=== PATIENT | female | born 1975 | race Caucasian/White ===

== ENCOUNTER 2019-11-07 21:02 | Emergency (ER) | payer BC, OTHER ==
[2019-11-07 22:29] LABS: BLOOD UREA NITROGEN,BUN 9 mg/dL (7.0-18.0); CHLORIDE,CL 104 mmol/L (98-107); GLUCOSE RANDOM 80 mg/dL (74-106); POTASSIUM,K 4.4 mmol/L (3.5-5.1); SODIUM,NA 138 mmol/L (136-145)
--- NOTE | 2019-11-07 23:01 | EDM.PDOC ---
ED HPI GENERAL MEDICAL PROBLEM - General Chief Complaint: Cardiovascular Problem Stated Complaint: fell and hitted head Time Seen by Provider: 11/07/19 21:17 - History of Present Illness INITIAL COMMENTS - FREE TEXT/NARRATIVE: HPI 44-year-old female with a history of recurrent syncopal episodes upon standing presents for evaluation after a syncopal event when she stood, felt lightheaded before having a sudden LOC, struck her head on a table as she fell and then near immediately returned consciousness. Endorses mild headache. Denies changes in vision or hearing. No blood thinners, no antiplatelet agents. * Denies chest pain, shortness of breath, double vision, neck pain, vertigo, headache, arm pain, arm paresthesias, arm numbness, or focal weakness or sensory at change now or the time of their event. * Denies recent chiropractic manipulation of their neck, neck trauma or strains. * Denies a history of seizures. No incontinence today, denies post-syncope confusion. M/S/F/SocHx notable for: please see HPI; remainder reviewed with patient and in chart. ROS: Negative constitutional, eye, cardiovascular, pulmonary, GI, , MSK, skin , neurologic, psychiatric, endocrine unless noted in the HPI. Exam HR 56, RR 16, BP 123/60, T 35.6C, SaO2 90% on room air. Gen: Pleasant, non-toxic appearing, resting comfortably. HEENT: NC, small hematoma on left posterior scalp, no surrounding bony tenderness palpation, otherwise atraumatic, PEERL, EOMI. C-Spine without tenderness palpation, neck with full range of motion. Resp: Clear to auscultation bilaterally with a normal work of breathing and no accessory muscle usage. Card: Regular rate and rhythm with no murmurs rubs or gallops, extremities are warm and well perfused, no JVD. Negative symptomatic orthostatics. GI: Nontender to palpation throughout all quadrants, nondistended : Deferred MSK: No visible deformities, strength and tone WNL. Skin: Normal color with no visible lesions. Neuro: alert and oriented 3, no facial asymmetry, no gaze preference, no slurring of speech. Pupils equal and reactive, EOMI, no facial asymmetry, no nystagmus, phonation intact, SCM 5/5 bilaterally. Cerebellar: bilateral upper extremities without dysmetria. Psych: Mood and affect appropriate. Labs / Imaging (pertinent): WBC 7.9, HB 13.4, sodium 138, potassium 4.4, hCG negative. EKG: SR at [address]-segment elevations or depressions, T-wave inversions or new LBBB. TN interval 146msec, QTc 440 msec, no delta waves, epsilon waves, coved or saddle ST-segment changes in leads V1-3, preseptal or inferior lead Q-waves, biphasic P-waves, or T-wave inversions; no LVH. MDM Previous chart, nursing note, and vitals reviewed. A: 44-year-old female with a history of recurrent syncopal episodes upon standing presents for evaluation after a syncopal event when she stood, felt lightheaded before having a sudden LOC, struck her head on a table as she fell and then near immediately returned consciousness. DDx and evaluation: * Anemia - Hemoglobin clinically within normal limits. * Cardiac - EKG labs and history without evidence of ACS, AV-block, WPW syndrome , Brugada syndrome, HCM, Long or Short QT-syndrome, or arrhythmogenic RV dysplasia. Heart sounds WNL on exam, no evidence of valvular abnormalities by history or auscultation. * Obstructive - Doubt PE, tamponade, or pulmonary hypertension based upon lack of shortness of breath, chest pain, or historical risk factors on history and the absence of hypoxemia, tachycardia, hypotension, or JVD on exam. * Vascular - As there are no identifiable risk factors on history (injury risk factors, vertiginous symptoms, diplopia, vision changes, TIA risk factors or prior similar events) further evaluationof a possible vertebrobasilar insufficiency. Furthermore, as the patient denies neck pain, recent neck trauma , and there is no evidence of a partial Loren's syndrome, a carotid or vertebral dissection is felt to be unlikely and imaging is not indicated. Similarly, the absence of focal arm symptoms and symmetric perfusion of the upper extremities effectively excludes emergent evaluation of any possible subclavian steal syndrome. Lastly, given the absence of chest pain aortic dissection further evaluation of any possible dissection is not warranted. * Elctrolyte - Electrolytes clinically within normal limits. * Hypotension (hypovolemia vs vasovagal vs autonomic instability) - SBP clinically within normal limits, no symptomatic changes with orthostatic maneuvers. * OBSTETRIC ANAESTHETIST (CVA/TIA/Mass) - given the absence of headache, absence of reported transient symptoms c/w a TIA and the absence of a focal neurological deficit, further evaluation, including imaging is not currently warranted. * Seizure - given the absence of reported seizure history and a presentation today atypical for a seizure strongly doubt that this was the cause of the patient's event. * AAA - patient without any abdominal, groin, back or flank pain on history or exam, as such no further evaluation of this possible etiology is currently indicated. * Head trauma - no clinical indications for C-Spine or head imaging. Disposition: discharge with PCP follow-up as needed. Impression: syncope. 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 [No Known Home Meds] 11/07/19 [History] Past Medical History - Past Health History Medical/Surgical History: Denies Medical/Surgical History - Past Surgical History GI Surgical History: Reports: Bariatric Procedure, Cholecystectomy Female Surgical History: Reports: Section, Hysterectomy Social & Family History - Family History Family Medical History: Noncontributory - Tobacco Use Smoking Status *Q: Never Smoker - Recreational Drug Use Recreational Drug Use: No ED ROS GENERAL - Review of Systems Review Of Systems: See Below ED EXAM, GENERAL - Physical Exam Exam: See Below Course - Vital Signs Last Recorded V/S: Last Vital Signs Temp 35.6 C 11/07/19 21:10 Pulse 56 L 11/07/19 21:10 Resp 16 11/07/19 21:10 BP 123/60 11/07/19 21:10 Pulse Ox 98 11/07/19 21:10 - Orders/Labs/Meds Orders: Active Orders 24 hr Category Date Time Status EKG 12 Lead [EKG Documentation Completion] [RC] STAT Care 11/07/19 21:17 Active Labs: Laboratory Tests 11/07/19 11/07/19 11/07/19 Range/Units 22:10 22:10 22:10 WBC 7.88 (4.0-11.0) K/uL RBC 4.61 (4.30-5.90) M/uL Hgb 13.4 (12.0-16.0) g/dL Hct 41.0 (36.0-46.0) % MCV 88.9 (80.0-98.0) fL MCH 29.1 (27.0-32.0) pg MCHC 32.7 (31.0-37.0) g/dL RDW Std Deviation 46.2 (28.0-62.0) fl RDW Coeff of Pankaj 14 (11.0-15.0) % Plt Count 280 (150-400) K/uL MPV 9.30 (7.40-12.00) fL Neut % (Auto) 73.9 (48.0-80.0) % Lymph % (Auto) 17.6 (16.0-40.0) % Lyon % (Auto) 7.2 (0.0-15.0) % Eos % (Auto) 1.0 (0.0-7.0) % Baso % (Auto) 0.3 (0.0-1.5) % Neut # (Auto) 5.8 H (1.4-5.7) K/uL Lymph # (Auto) 1.4 (0.6-2.4) K/uL Lyon # (Auto) 0.6 (0.0-0.8) K/uL Eos # (Auto) 0.1 (0.0-0.7) K/uL Baso # (Auto) 0.0 (0.0-0.1) K/uL Nucleated RBC % 0.0 /100WBC Nucleated RBCs # 0 K/uL Sodium 138 (136-145) mmol/L Potassium 4.4 (3.5-5.1) mmol/L Chloride 104 (98-107) mmol/L Carbon Dioxide 24.0 (21.0-32.0) mmol/L BUN 9 (7.0-18.0) mg/dL Creatinine 0.8 (0.6-1.0) mg/dL Est Cr Clr Drug Dosing 88.18 mL/min Estimated GFR (MDRD) > 60.0 ml/min Glucose 80 (74-106) mg/dL Calcium 8.4 L (8.5-10.1) mg/dL HCG, Qual NEGATIVE (NEG) Departure - Departure Time of Disposition: 23:00 Disposition: Home, Self-Care 01 Clinical Impression: Syncope Referrals: PCP,Unknown [Primary Care Provider] - Additional Instructions: You were in seen in the [facility] Emergency Department for evaluation of passing out or syncope. Please read and follow all of the instructions below. Please follow up with your primary care physician in 24-48 hours for repeat evaluation and further care. When calling for follow-up care, please make the office aware that this follow-up is from your recent emergency room visit. If for any reason you are refused follow-up, please contact the [facility] Emergency Department at and asked to speak to the emergency department charge nurse. Your care today was limited to identifying and treating emergent medical problems only. Many people have subtle differences in their test results that require follow up with their outpatient physician(s) to correctly determine if this represents a normal variation or concerning abnormality with respect to your specific health. The care given to you today was limited to identifying and treating emergent medical problems - you need to request a copy of all of your medical records from today's visit and follow up with your outpatient physician(s) to review both today's visit and your overall health. If you have any new symptoms or if you are at all concerned about your health please return immediately to the emergency department. Prescriptions: If you are uninsured or have financial difficulties with filling your prescription(s), you may consider using a free pharmacy discount service such as [employer] ([employer]) or [employer] ([employer]). These services allow you to search for a medication on your phone (or computer) and obtain a coupon that usually has a significant discount from the list coronel at a pharmacy. Your physician as well as [facility] does not have a financial relationship with either of these services. You may also wish to speak with your physician to determine if lower cost prescriptions are possible. Obtaining primary care: 1. [facility] provides pediatrics (children), family medicine (children, adults, and some obstetrical care), and internal medicine (adults). Further specialty care is also available. Same day appointments are available. They may be contacted at [phone] and are open Sunday through Sunday 8 AM to 5 PM. The [facility] are located at [facility], [address] [place], [place] [address]. 2. [facility] offers family medicine, internal medicine, womens health, and further specialty care. [facility] may be contacted at [phone]. [facility] is located at [address] [place], [address]. 3. If you have health insurance, please also contact your insurer for a list of accepting providers under your policy, you may contact these providers for further health care. Occupational health: Work related injuries may consider following up with [facility], . Occupational health services are located at [address] [place] [address] and are open Sunday through Sunday from 7: 30 am to 5:00 pm. Obstetrical and Gynecological Care: [facility], , Sunday through Sunday 8 AM to [address] [place] [address]. Eyecare: If you have an eye injury you should follow up with your remote control mirror installer or with [facility], at [phone] or [phone] , they are located at [address] [place] [address]. Dental Care Yan Bishop DDS. [address] [place], [place]. Ph. [phone] Jonathan Bishop DDS MS. [address] [facility] [address], [place], [place]. Ph. [phone] Ismael Diaz DDS. [address] [place]. Ph. [phone] Justin Clarke DDS. [address] [facility] [address] [place], [place]. Ph. [phone] Marck Elizabeth DDS PC. [address] [facility] [address] [place], [place]. Ph. Rubi Styles DDS. [address] [facility]. Ph. [phone] [facility]. [address] [place], [place]. Ph. [phone] [facility]. [address], [place], [place]. Ph. [phone] [facility] [address] [place] [phone]. Ph. [facility]. [address] [place] [address] [address] [place]. Ph. [facility]. [address], [place]. Ph. [phone] Syncope You have had a fainting (syncopal) spell. A fainting episode is a sudden and brief loss of consciousness. We do not believe your syncopal episode today was caused by a serious problem. Please followup with your primary care physician within 1-2 days for reevaluation, review of your current medications, and further workup or treatment if necessary. There are many causes for syncope and it can be difficult to fully diagnose each cause of syncope in the emergency department. Some of the most common causes of syncope are: Blood pressure pills and other medications that may lower blood pressure below normal. Sudden changes in posture (sudden standing). Standing too long. This can cause blood to pool in the legs. Seizure disorders. Low blood sugar (hypoglycemia) of diabetes. Bearing down to go to the bathroom. This can cause your blood pressure to rise suddenly. Your body compensates by making the blood pressure too low when you stop bearing down. Hardening of the arteries where the brain temporarily does not receive enough blood. Irregular heart beat and circulatory problems. Fear, emotional distress, injury, sight of blood, or illness. Seek immediate medical care if: You have another fainting episode or faint while lying or sitting down. DO NOT DRIVE YOURSELF. Call 911 if no other help is available. You have chest pain, are feeling sick to your stomach (nausea), vomiting or abdominal pain. You have an irregular heartbeat or one that is very fast (pulse over 120 beats per minute). You have a loss of feeling in some part of your body or lose movement in your arms or legs. You have difficulty with speech, confusion, severe weakness, or visual problems. You become sweaty and/or feel light headed. HomeDownRight Sepsis Event Note - Evaluation Sepsis Screening Result: No Definite Risk - Focused Exam Vital Signs: Vital Signs Temp Pulse Resp BP Pulse Ox 11/07/19 21:10 35.6 C 56 L 16 123/60 98 Date Exam was Performed: 11/07/19 Time Exam was Performed: 23:00 - My Orders Last 24 Hours: My Active Orders 11/07/19 21:17 EKG 12 Lead [EKG Documentation Completion] [RC] STAT - Assessment/Plan Last 24 Hours: My Active Orders 11/07/19 21:17 EKG 12 Lead [EKG Documentation Completion] [RC] STAT
== END 2019-11-07 23:15 | disposition home or self-care (01) ==
LOC: MW.ED 21:02
DX: R55 Syncope and collapse (principal); S00.03XA Contusion of scalp, initial encounter; Z98.84 Bariatric surgery status; Z90.49 Acquired absence of other specified parts of digestive tract; Z90.710 Acquired absence of both cervix and uterus; W01.198A Fall on same level from slipping, tripping and stumbling with subsequent striking against other object, initial encounter
CPT/HCPCS: 36415; 80048; 84703; 85025; 93005; 99283; 99284-25

== ENCOUNTER 2021-05-10 14:11 | Inpatient (IN) | payer OTHER ==
[2021-05-10] MEDS ORDERED: Ketorolac 30 MG/ML SDV IVPUSH ONE (15:53)
[2021-05-10] MEDS ORDERED: Sodium Chloride 0.9% 1,000 ML IV ONE ×2 (15:53→19:19)
[2021-05-10] MEDS ORDERED: Ondansetron 4 MG/2 ML SDV IVPUSH ONE (15:53)
[2021-05-10 17:15] LABS: CARBON DIOXIDE,CO2 26.3 mmol/L (21.0-32.0); POTASSIUM,K 3.2 mmol/L (3.5-5.1)
[2021-05-10] MEDS ORDERED: Iopamidol 755 MG/ML 500 ML Multipack Bottle IVPUSH STA (17:35)
--- NOTE | 2021-05-10 17:35 | CR ---
For Patients: As a result of the Century Cures Act, medical imaging exams and procedure reports are released immediately into your electronic medical record. You may view this report before your referring provider. If you have questions, please contact your health care provider. INDICATION: pain TECHNIQUE: Chest 1 view. COMPARISON: None. FINDINGS: Cardiovascular and mediastinum: Heart size and vasculature are normal in caliber and appearance. Mediastinum is within normal limits. Lungs and pleural space: Lungs are clear. No sign of infiltrate or mass. No sign of pleural effusion. No pneumothorax. Bones and soft tissues: No significant findings. IMPRESSION: Unremarkable chest. Dictated by: Abhishek Tobar MD @ 05/10/2021 17:33:57 (Electronically Signed)
[2021-05-10 18:02] LABS: CORONAVIRUS COVID-19 NAA NEGATIVE (NEGATIVE); INFLUENZA A NAA NEGATIVE (NEGATIVE); INFLUENZA B NAA NEGATIVE (NEGATIVE)
[2021-05-10] MEDS ORDERED: Piperacillin/Tazobactam 3.375 GM in Sodium Chloride 0.9% 50 ML IV ONE (18:47)
[2021-05-10] MEDS ORDERED: metroNIDAZOLE/Normal Saline 500 MG in Premix Bag 1 BAG IV ONE (18:51)
--- NOTE | 2021-05-10 18:53 | CT ---
INDICATION: abdominal pain with leukocytosis TECHNIQUE: CT abdomen and pelvis acquired with 100 ml Isovue 370IV contrast. COMPARISON: None FINDINGS: Lower chest: Unremarkable. Liver: Small calcifications in the right hepatic lobe. Spleen: Unremarkable. Pancreas: Unremarkable. Gallbladder and bile ducts: S/p cholecystectomy. Adrenal glands: Unremarkable. Kidneys: Unremarkable. GI tract: Status post gastric surgery. Mild, diffuse colonic wall thickening. No extraluminal air or abscess. No evidence for diverticulitis. The appendix measures up to 7 mm in diameter. Vascular structures: Unremarkable. Lymph nodes: Unremarkable. Pelvic Organs: Status post hysterectomy. Bones: Unremarkable for age. IMPRESSION: The appendix is thickened. There is no significant periappendiceal fat stranding but early acute appendicitis cannot be excluded. Mild, diffuse colonic wall thickening may reflect a nonspecific colitis. Status post gastric surgery, hysterectomy, and cholecystectomy. Findings discussed with Dr. Crockett at 6:50 p.m. on May 10, 2020. Please note that all CT scans at this facility use dose modulation, iterative reconstruction, and/or weight-based dosing when appropriate to reduce radiation dose to as low as reasonably achievable. Dictated by Jazmín Burns MD @ 05/10/2021 6:52:[address] Jazmín Burns @ May 10 2021 6:52PM
[2021-05-10] MEDS ORDERED: metroNIDAZOLE/Normal Saline 100 ML ONE (19:39)
--- NOTE | 2021-05-10 21:09 | EDM.PDOC ---
ED HPI GENERAL MEDICAL PROBLEM - General Chief Complaint: ENT Problem Stated Complaint: HIGH WBC Time Seen by Provider: 05/10/21 14:29 Source of Information: Reports: Patient History Limitations: Reports: No Limitations - History of Present Illness INITIAL COMMENTS - FREE TEXT/NARRATIVE: HISTORY AND PHYSICAL: History of present illness: Patient is a 45-year-old female who presents emergency room today after she was instructed to come to the emergency room due to her white blood cell count being elevated while at the clinic. Patient states that over the past week, she has n ot been feeling the best. Patient states initially she had a sore throat and was treated with Augmentin for presumed strep as she had white patches in the back of her throat. Patient states that her throat pain is much improved and is only residual at this time. Patient states 2 to 3 days ago, she began developing abdominal pain/cramping, fevers, vomiting, and diarrhea and states that she has been having a difficult time sleeping due to the symptoms. Patient states that she followed up again at the clinic and they had done lab work and instructed her to come to the emergency room after her white blood cell count was elevated at approximately 25. Patient states that she continues to have fevers, intermittent vomiting, and abdominal pain/cramping and states that she has also been having episodes of watery diarrhea multiple times throughout the day. Patient has a history of cholecystectomy, hysterectomy, and bariatric surgery denies any other health history. Patient denies any other associated symptoms. Patient denies chest pain, shortness of breath, or cough. Denies headache, neck stiff ness, change in vision, syncope, or near syncope. Denies constipation, or dysuria. Has not noted any blood in urine or stool. Patient has been eating and drinking appropriately. Review of systems: As per history of present illness and below otherwise all systems reviewed and negative. Past medical history: As per history of present illness and as reviewed below otherwise noncontributory. Surgical history: As per history of present illness and as reviewed below otherwise noncontri butory. Social history: See social history for further information Family history: As per history of present illness and as reviewed below otherwise noncontributory. Physical exam: General: Patient is alert, oriented, and in no acute distress. Patient laying comfortably on exam table. Vitals stable and reviewed by me. Patient is tired appearing. HEENT: Atraumatic, normocephalic, pupils equal and reactive bilaterally, negative for conjunctival pallor or scleral icterus, mucous membranes moist, TMs normal bilaterally, throat clear, neck supple, nontender, trachea midline. No drooling or trismus noted. No meningeal signs. No hot potato voice noted. Lungs: Clear to auscultation, breath sounds equal bilaterally, chest nontender. Heart: S1S2, regular rate and rhythm without overt murmur Abdomen: Soft, nondistended, mild generalized abdominal tenderness with negative rebound and negative Hudson. Negative for masses or hepatosplenomegaly. Negative for costovertebral tenderness. Pelvis: Stable nontender. Genitourinary: Deferred. Rectal: Deferred. Skin: Intact, warm, dry. No lesions or rashes noted. Extremities: Atraumatic, negative for cords or calf pain. Neurovascular unremarkable. Neuro: Awake, alert, oriented. Cranial nerves II through XII unremarkable. Cerebellum unremarkable. Motor and sensory unremarkable throughout. Exam nonfocal. Notes: Patient is a 45-year-old female who presents emergency room today secondary to abdominal pain and cramping, vomiting, fevers, and diarrhea over the past 3 days with a known elevated white blood cell count at the clinic. Upon arrival to the ED, patient is vitally stable and well-appearing on exam and is tired appearing. Will obtain lab work as well as abdominal pelvic CT scan as well as stool studies. Will also give a 20cc/kg bolus of NS. CBC shows a leukocytosis of 25.69 without a left shift and lactate within normal limits. Remainder of CBC unremarkable. CMP shows hypokalemia mild at 3.2. Creatinine mildly elevated at 1.1. Glucose elevation at 129. Corrected calcium for albumin 8.2 which is mildly decreased. Otherwise mild derangements of CBC unremarkable. Zosyn initiated. Patient unable to leave stool sample in ED. CXR shows no acute cardiopulmonary findings. Abd/Pelvic CT w cont shows the appendix is thickened. There is no significant periappendiceal fat stranding but early acute appendicitis cannot be excluded. Mild, diffuse colonic wall thickening may reflect nonspecific colitis. S/P gastric surgery, hysterectomy, and cholecystectomy. Will also add on Flagyl IV. I did call and speak to Dr. Heredia, general surgery, and thoroughly discussed patients case. He will follow patient for possible acute appendicitis but would like patient admitted to hospitalist due to colitis. I did call and speak to the hospitalist control officer, Dr. Newman and will admit to inpatient on telemetry. Voices understanding and is agreeable to plan of care. Denies any further questions or concerns at this time. Patient discharged to the hospital floor to Dr. Amaya care in stable condition. Diagnostics: CBC, CMP, UA, lipase, lactate, blood cultures x2, abdominal pelvic CT scan with contrast, ova and parasite, C. difficile, stool culture/[employer]: Saline, Zosyn, Flagyl, Zofran, Toradol Impression: Diffuse colitis Thickened appendix, possible early acute appendicitis Plan: Admit to inpatient to Dr. Newman, hospitalist, with consult to Dr. Heredia, general surgery, on telemetry Definitive disposition and diagnosis as appropriate pending reevaluation and review of above. Throat Pain Score (Numeric/FACES): 8 - Related Data Allergies Allergy/AdvReac Type Severity Reaction Status Date / Time No Known Allergies Allergy Verified 11/07/19 21:13 Home Meds: Home Meds . [No Known Home Meds] 11/07/19 [History] Past Medical History - Past Health History Medical/Surgical History: Denies Medical/Surgical History - Past Surgical History GI Surgical History: Reports: Bariatric Procedure, Cholecystectomy Female Surgical History: Reports: Section, Hysterectomy Social & Family History - Family History Family Medical History: No Pertinent Family History - Tobacco Use Tobacco Use Status *Q: Never Tobacco User Second Hand Smoke Exposure: No - Caffeine Use Caffeine Use: Reports: Coffee - Recreational Drug Use Recreational Drug Use: No ED ROS GENERAL - Review of Systems Review Of Systems: Comprehensive ROS is negative, except as noted in HPI. ED EXAM, GENERAL - Physical Exam Exam: See Below (see dictation) Course - Vital Signs Last Recorded V/S: Last Vital Signs Temp 96.7 F L 05/10/21 14:48 Pulse 78 05/10/21 16:54 Resp 18 05/10/21 16:54 BP 128/76 05/10/21 16:54 Pulse Ox 95 05/10/21 16:54 - Orders/Labs/Meds Orders: Active Orders 24 hr Category Date Time Status C DIFFICILE AG/TOXIN W/REFLEX [RM] Stat Lab 05/10/21 15:54 Ordered OVA & PARASITES BY IMMUNOASSAY [MREF] Stat Lab 05/10/21 15:54 Ordered STOOL CULTURE/SHIGA TOXIN [MREF] Stat Lab 05/10/21 15:53 Ordered STREP A BY PCR [MOLEC] Stat Lab 05/10/21 15:58 Ordered UA RFX YANETH AND CULT IF INDIC [URIN] Stat Lab 05/10/21 15:53 Ordered Labs: Laboratory Tests 05/10/21 05/10/21 05/10/21 Range/Units 16:45 16:45 17:15 WBC 25.69 H (4.0-11.0) K/uL RBC 4.32 (4.30-5.90) M/uL Hgb 12.9 (12.0-16.0) g/dL Hct 38.0 (36.0-46.0) % MCV 88.0 (80.0-98.0) fL MCH 29.9 (27.0-32.0) pg MCHC 33.9 (31.0-37.0) g/dL RDW Std Deviation 45.0 (28.0-62.0) fl RDW Coeff of Pankaj 14 (11.0-15.0) % Plt Count 293 (150-400) K/uL MPV 9.70 (7.40-12.00) fL Neut % (Auto) 88.8 H (48.0-80.0) % Lymph % (Auto) 4.0 L (16.0-40.0) % [place] % (Auto) 7.0 (0.0-15.0) % Eos % (Auto) 0.1 (0.0-7.0) % Baso % (Auto) 0.1 (0.0-1.5) % Neut # (Auto) 22.8 H (1.4-5.7) K/uL Lymph # (Auto) 1.0 (0.6-2.4) K/uL [place] # (Auto) 1.8 H (0.0-0.8) K/uL Eos # (Auto) 0.0 (0.0-0.7) K/uL Baso # (Auto) 0.0 (0.0-0.1) K/uL Nucleated RBC % 0.0 /100WBC Nucleated RBCs # 0 K/uL Sodium 139 (136-145) mmol/L Potassium 3.2 L (3.5-5.1) mmol/L Chloride 103 (98-107) mmol/L Carbon Dioxide 26.3 (21.0-32.0) mmol/L BUN 14 (7.0-18.0) mg/dL Creatinine 1.1 H (0.6-1.0) mg/dL Est Cr Clr Drug Dosing 63.47 mL/min Estimated GFR (MDRD) 54.0 ml/min Glucose 129 H (74-106) mg/dL Lactic Acid (0.4-2.0) mmol/L Calcium 7.8 L (8.5-10.1) mg/dL Total Bilirubin 0.6 (0.2-1.0) mg/dL AST 9 L (15-37) IU/L ALT 17 (14-63) IU/L Alkaline Phosphatase 101 (46-116) U/L Total Protein 6.7 (6.4-8.2) g/dL Albumin 2.9 L (3.4-5.0) g/dL Globulin 3.8 (2.6-4.0) g/dL Albumin/Globulin Ratio 0.8 L (0.9-1.6) Lipase 29 L (73-393) U/L Influenza Type A RNA NEGATIVE (NEGATIVE) Influenza Type B RNA NEGATIVE (NEGATIVE) SARS-CoV-2 RNA (DAVID) NEGATIVE (NEGATIVE) 05/10/21 Range/Units 18:10 WBC (4.0-11.0) K/uL RBC (4.30-5.90) M/uL Hgb (12.0-16.0) g/dL Hct (36.0-46.0) % MCV (80.0-98.0) fL MCH (27.0-32.0) pg MCHC (31.0-37.0) g/dL RDW Std Deviation (28.0-62.0) fl RDW Coeff of Pankaj (11.0-15.0) % Plt Count (150-400) K/uL MPV (7.40-12.00) fL Neut % (Auto) (48.0-80.0) % Lymph % (Auto) (16.0-40.0) % [place] % (Auto) (0.0-15.0) % Eos % (Auto) (0.0-7.0) % Baso % (Auto) (0.0-1.5) % Neut # (Auto) (1.4-5.7) K/uL Lymph # (Auto) (0.6-2.4) K/uL [place] # (Auto) (0.0-0.8) K/uL Eos # (Auto) (0.0-0.7) K/uL Baso # (Auto) (0.0-0.1) K/uL Nucleated RBC % /100WBC Nucleated RBCs # K/uL Sodium (136-145) mmol/L Potassium (3.5-5.1) mmol/L Chloride (98-107) mmol/L Carbon Dioxide (21.0-32.0) mmol/L BUN (7.0-18.0) mg/dL Creatinine (0.6-1.0) mg/dL Est Cr Clr Drug Dosing mL/min Estimated GFR (MDRD) ml/min Glucose (74-106) mg/dL Lactic Acid 1.0 (0.4-2.0) mmol/L Calcium (8.5-10.1) mg/dL Total Bilirubin (0.2-1.0) mg/dL AST (15-37) IU/L ALT (14-63) IU/L Alkaline Phosphatase (46-116) U/L Total Protein (6.4-8.2) g/dL Albumin (3.4-5.0) g/dL Globulin (2.6-4.0) g/dL Albumin/Globulin Ratio (0.9-1.6) Lipase (73-393) U/L Influenza Type A RNA (NEGATIVE) Influenza Type B RNA (NEGATIVE) SARS-CoV-2 RNA (DAVID) (NEGATIVE) Meds: Medications Discontinued Medications Generic Name Dose Route Start Last Admin Trade Name Freq PRN Reason Stop Dose Admin Sodium Chloride 1,000 mls @ 999 mls/hr 05/10/21 15:53 05/10/21 16:51 Normal Saline IV 05/10/21 16:53 999 mls/hr BOLUS ONE Administration Piperacillin Sod/Tazobactam 50 mls @ 100 mls/hr 05/10/21 18:47 05/10/21 19:54 Sod 3.375 gm/ Sodium Chloride IV 05/10/21 19:16 100 mls/hr ONETIME ONE Administration Metronidazole 500 mg/ Premix 100 mls @ 100 mls/hr 05/10/21 18:51 05/10/21 19:56 IV 05/10/21 19:50 100 mls/hr ONETIME ONE Administration Sodium Chloride 1,000 mls @ 800 mls/hr 05/10/21 19:19 05/10/21 19:50 Normal Saline IV 05/10/21 20:33 800 mls/hr STAT ONE Administration Metronidazole Confirm 05/10/21 19:39 05/10/21 19:56 Flagyl In Ns 500 Mg/100 Ml Administered 05/10/21 19:40 Not Given Dose 100 mls @ as directed .ROUTE .STK-MED ONE Iopamidol 100 ml 05/10/21 17:35 05/10/21 17:36 Iopamidol 755 Mg/Ml 500 Ml Multipack Bottle IVPUSH 05/10/21 17:36 100 ml ONETIME STA Administration Ketorolac Tromethamine 30 mg 05/10/21 15:53 05/10/21 16:52 Ketorolac 30 Mg/Ml Sdv IVPUSH 05/10/21 15:54 30 mg ONETIME ONE Administration Ondansetron HCl 4 mg 05/10/21 15:53 05/10/21 16:52 Ondansetron 4 Mg/2 Ml Sdv IVPUSH 05/10/21 15:54 4 mg ONETIME ONE Administration Departure - Departure Time of Disposition: 21:24 Disposition: Admitted As Inpatient 67 Clinical Impression: Colitis Appendicitis Qualifiers: Appendicitis type: unspecified Qualified Code(s): K37 - Unspecified appendicitis - Discharge Information Sepsis Event Note (ED) - Evaluation Sepsis Screening Result: Possible Sepsis Risk - Focused Exam Vital Signs: Vital Signs Temp Pulse Resp BP Pulse Ox 05/10/21 16:54 78 18 128/76 95 05/10/21 14:48 96.7 F L 91 20 127/75 100 - My Orders Last 24 Hours: My Active Orders 05/10/21 15:53 STOOL CULTURE/SHIGA TOXIN [MREF] Stat UA RFX YANETH AND CULT IF INDIC [URIN] Stat 05/10/21 15:54 C DIFFICILE AG/TOXIN W/REFLEX [RM] Stat OVA & PARASITES BY IMMUNOASSAY [MREF] Stat 05/10/21 15:58 STREP A BY PCR [MOLEC] Stat - Assessment/Plan Last 24 Hours: My Active Orders 05/10/21 15:53 STOOL CULTURE/SHIGA TOXIN [MREF] Stat UA RFX YANETH AND CULT IF INDIC [URIN] Stat 05/10/21 15:54 C DIFFICILE AG/TOXIN W/REFLEX [RM] Stat OVA & PARASITES BY IMMUNOASSAY [MREF] Stat 05/10/21 15:58 STREP A BY PCR [MOLEC] Stat
[2021-05-10] MEDS ORDERED: Ondansetron 4 MG/2 ML SDV IVPUSH PRN (23:09)
[2021-05-10] MEDS ORDERED: Albuterol/Ipratropium 3.0-0.5 MG/3 ML Neb Soln NEB PRN (23:09)
[2021-05-10] MEDS ORDERED: Potassium Chloride Riders 40 MEQ in Premix Bag 1 BAG IV ONE (23:14)
[2021-05-10] MEDS ORDERED: Enoxaparin 40 MG/0.4 ML Syringe SUBCUT ONE (23:15)
[2021-05-10] MEDS ORDERED: Morphine 2 MG/ML SYRINGE IVPUSH PRN (23:15)
--- NOTE | 2021-05-10 23:18 | PCM.HP.2 ---
H&P History of Present Illness - General Date of Service: 05/10/21 Admit Problem/Dx: Admission Diagnosis/Problem Admission Diagnosis/Problem Colitis - History of Present Illness Initial Comments - Free Text/Narative: Patient is a 45-year-old female with past medical history of bariatric surgery, cholecystectomy, hysterectomy who comes in secondary to worsening nausea, vomiting, generalized abdominal pain and diarrhea for the past 2 to 3 days. Patient states that she suffered from severe sore throat earlier starting last week on Sunday which progressively got worse. She had white plaques in the back of her throat. She went to see her primary care doctor who started her for strep throat infection on Augmentin. Patient states that Augmentin was pretty harsh on her stomach but she finished 7 doses out of 10. Following that patient started having nausea, vomiting abdominal pain and diarrhea which got worse in last few days. Patient went back to her primary care doctor where lab work was done which showed very elevated WBC count. Patient was instructed to go to the ER. In the ER CT scan of the abdomen was done which showed generalized colitis and possibly inflamed appendix. Surgeon on-call initially had recommended transfer to higher level of care given possible appendicitis and colitis, the surgeons at [facility] did not recommend transfer at this point, they recommended treating patient for colitis as patient had no classic signs of appendicitis and closely watching for any worsening signs of appendicitis. Patient was admitted to the hospital for further management with surgery on consult. Throat Pain Score (Numeric/FACES): 8 - Related Data Allergies/Adverse Reactions: Allergies Allergy/AdvReac Type Severity Reaction Status Date / Time No Known Allergies Allergy Verified 11/07/19 21:13 Home Medications: Home Meds . [No Known Home Meds] 11/07/19 [History] Past Medical History - Past Health History Medical/Surgical History: Denies Medical/Surgical History - Past Surgical History GI Surgical History: Reports: Bariatric Procedure, Cholecystectomy Female Surgical History: Reports: Section, Hysterectomy Social & Family History - Family History Family Medical History: No Pertinent Family History - Tobacco Use Tobacco Use Status *Q: Never Tobacco User Second Hand Smoke Exposure: No - Caffeine Use Caffeine Use: Reports: Coffee - Recreational Drug Use Recreational Drug Use: No H&P Review of Systems - Review of Systems: Review Of Systems: See Below General: Reports: Fever, Chills, Malaise, Weakness, Fatigue Pulmonary: Denies: Shortness of Breath, Wheezing Cardiovascular: Denies: Chest Pain, Palpitations Gastrointestinal: Reports: Abdominal Pain, Anorexia, Diarrhea, Decreased Appetite, Nausea. Denies: Black Stool, Bloody Stool, Constipation, Difficulty Swallowing, Flatus, Hematemesis, Hematochezia Genitourinary: Denies: Dysuria, Frequency, Burning Musculoskeletal: Denies: Neck Pain, Shoulder Pain, Arm Pain Skin: Denies: Cyanosis, Jaundice, Mottled Psychiatric: Denies: Confusion, Depression Neurological: Denies: Confusion, Dizziness, Headache Hematologic/Lymphatic: Denies: Anemia, Easy Bleeding, Easy Bruising Immunologic: Denies: Anaphylaxis, Food Allergy Exam - Exam Exam: See Below - Vital Signs Vital Signs: Last Vital Signs Temp 35.9 C L 05/10/21 14:48 Pulse 78 05/10/21 16:54 Resp 18 05/10/21 16:54 BP 128/76 05/10/21 16:54 Pulse Ox 95 05/10/21 16:54 Weight: 88.451 kg - Exam General: Alert, Oriented, Cooperative, Mild Distress Neck: Supple Lungs: Clear to Auscultation Cardiovascular: Regular Rate, Regular Rhythm GI/Abdominal Exam: Normal Bowel Sounds, Soft, Tender (Generalized abdominal pain mostly in epigastric region, no tenderness in the right lower quadrant) Extremities: Normal Inspection, Normal Range of Motion - Patient Data Lab Results Last 24 hrs: Laboratory Results - last 24 hr 05/10/21 05/10/21 05/10/21 Range/Units 16:45 16:45 17:15 WBC 25.69 H (4.0-11.0) K/uL RBC 4.32 (4.30-5.90) M/uL Hgb 12.9 (12.0-16.0) g/dL Hct 38.0 (36.0-46.0) % MCV 88.0 (80.0-98.0) fL MCH 29.9 (27.0-32.0) pg MCHC 33.9 (31.0-37.0) g/dL RDW Std Deviation 45.0 (28.0-62.0) fl RDW Coeff of Pankaj 14 (11.0-15.0) % Plt Count 293 (150-400) K/uL MPV 9.70 (7.40-12.00) fL Neut % (Auto) 88.8 H (48.0-80.0) % Lymph % (Auto) 4.0 L (16.0-40.0) % [place] % (Auto) 7.0 (0.0-15.0) % Eos % (Auto) 0.1 (0.0-7.0) % Baso % (Auto) 0.1 (0.0-1.5) % Neut # (Auto) 22.8 H (1.4-5.7) K/uL Lymph # (Auto) 1.0 (0.6-2.4) K/uL [place] # (Auto) 1.8 H (0.0-0.8) K/uL Eos # (Auto) 0.0 (0.0-0.7) K/uL Baso # (Auto) 0.0 (0.0-0.1) K/uL Nucleated RBC % 0.0 /100WBC Nucleated RBCs # 0 K/uL Sodium 139 (136-145) mmol/L Potassium 3.2 L (3.5-5.1) mmol/L Chloride 103 (98-107) mmol/L Carbon Dioxide 26.3 (21.0-32.0) mmol/L BUN 14 (7.0-18.0) mg/dL Creatinine 1.1 H (0.6-1.0) mg/dL Est Cr Clr Drug Dosing 63.47 mL/min Estimated GFR (MDRD) 54.0 ml/min Glucose 129 H (74-106) mg/dL Lactic Acid (0.4-2.0) mmol/L Calcium 7.8 L (8.5-10.1) mg/dL Total Bilirubin 0.6 (0.2-1.0) mg/dL AST 9 L (15-37) IU/L ALT 17 (14-63) IU/L Alkaline Phosphatase 101 (46-116) U/L Total Protein 6.7 (6.4-8.2) g/dL Albumin 2.9 L (3.4-5.0) g/dL Globulin 3.8 (2.6-4.0) g/dL Albumin/Globulin Ratio 0.8 L (0.9-1.6) Lipase 29 L (73-393) U/L Influenza Type A RNA NEGATIVE (NEGATIVE) Influenza Type B RNA NEGATIVE (NEGATIVE) SARS-CoV-2 RNA (DAVID) NEGATIVE (NEGATIVE) Group A Strep (PCR) (NOT DETECT) 05/10/21 05/10/21 Range/Units 18:10 21:18 WBC (4.0-11.0) K/uL RBC (4.30-5.90) M/uL Hgb (12.0-16.0) g/dL Hct (36.0-46.0) % MCV (80.0-98.0) fL MCH (27.0-32.0) pg MCHC (31.0-37.0) g/dL RDW Std Deviation (28.0-62.0) fl RDW Coeff of Pankaj (11.0-15.0) % Plt Count (150-400) K/uL MPV (7.40-12.00) fL Neut % (Auto) (48.0-80.0) % Lymph % (Auto) (16.0-40.0) % [place] % (Auto) (0.0-15.0) % Eos % (Auto) (0.0-7.0) % Baso % (Auto) (0.0-1.5) % Neut # (Auto) (1.4-5.7) K/uL Lymph # (Auto) (0.6-2.4) K/uL [place] # (Auto) (0.0-0.8) K/uL Eos # (Auto) (0.0-0.7) K/uL Baso # (Auto) (0.0-0.1) K/uL Nucleated RBC % /100WBC Nucleated RBCs # K/uL Sodium (136-145) mmol/L Potassium (3.5-5.1) mmol/L Chloride (98-107) mmol/L Carbon Dioxide (21.0-32.0) mmol/L BUN (7.0-18.0) mg/dL Creatinine (0.6-1.0) mg/dL Est Cr Clr Drug Dosing mL/min Estimated GFR (MDRD) ml/min Glucose (74-106) mg/dL Lactic Acid 1.0 (0.4-2.0) mmol/L Calcium (8.5-10.1) mg/dL Total Bilirubin (0.2-1.0) mg/dL AST (15-37) IU/L ALT (14-63) IU/L Alkaline Phosphatase (46-116) U/L Total Protein (6.4-8.2) g/dL Albumin (3.4-5.0) g/dL Globulin (2.6-4.0) g/dL Albumin/Globulin Ratio (0.9-1.6) Lipase (73-393) U/L Influenza Type A RNA (NEGATIVE) Influenza Type B RNA (NEGATIVE) SARS-CoV-2 RNA (DAVID) (NEGATIVE) Group A Strep (PCR) NOT DETECTED (NOT DETECT) Result Diagrams: 05/10/21 16:45 05/10/21 16:45 Sepsis Event Note - Evaluation Sepsis Screening Result: Possible Sepsis Risk - Focused Exam Vital Signs: Vital Signs Temp Pulse Resp BP Pulse Ox 05/10/21 16:54 78 18 128/76 95 05/10/21 14:48 35.9 C L 91 20 127/75 100 - Problem List (1) H/O gastric bypass SNOMED Code(s): 077306993 ICD Code: Z98.84 - BARIATRIC SURGERY STATUS Status: Acute Current Visit: Yes (2) Hx of cholecystectomy SNOMED Code(s): 240991430, 361023877 ICD Code: Z90.49 - ACQUIRED ABSENCE OF OTHER SPECIFIED PARTS OF DIGESTIVE TRACT Status: Acute Current Visit: Yes (3) Colitis SNOMED Code(s): 53527522 ICD Code: K52.9 - NONINFECTIVE GASTROENTERITIS AND COLITIS, UNSPECIFIED Status: Acute Current Visit: Yes (4) Hypokalemia SNOMED Code(s): 54376427 ICD Code: E87.6 - HYPOKALEMIA Status: Acute Current Visit: Yes Problem List Initiated/Reviewed/Updated: Yes Orders Last 24hrs: Active Orders 24 hr Category Date Time Status Admission Status [Patient Status] [ADT] Stat ADT 05/10/21 19:20 Active Ambulate [RC] ASDIRECTED Care 05/10/21 23:09 Active Antiembolic Devices [RC] PER UNIT ROUTINE Care 05/10/21 23:10 Active Notify Provider Consults [RC] ASDIRECTED Care 05/10/21 19:20 Active Oxygen Therapy [RC] PRN Care 05/10/21 23:09 Active RT Aerosol Therapy [RC] ASDIRECTED Care 05/10/21 23:11 Active VTE/DVT Education [RC] PER UNIT ROUTINE Care 05/10/21 23:09 Active Vital Signs [RC] Q4H Care 05/10/21 23:09 Active Consult to Physician [CONS] Stat Cons 05/10/21 19:20 Active Clear Liquid Diet [DIET] Diet 05/10/21 Dinner Active C DIFFICILE AG/TOXIN W/REFLEX [RM] Stat Lab 05/10/21 15:54 Ordered CULTURE BLOOD [BC] Stat Lab 05/10/21 21:23 Received CULTURE BLOOD [BC] Stat Lab 05/10/21 21:29 Received OVA & PARASITES BY IMMUNOASSAY [MREF] Stat Lab 05/10/21 15:54 Ordered STOOL CULTURE/SHIGA TOXIN [MREF] Stat Lab 05/10/21 15:53 Ordered UA RFX YANETH AND CULT IF INDIC [URIN] Stat Lab 05/10/21 22:35 Received Albuterol/Ipratropium [DuoNeb 3.0-0.5 MG/3 ML] Med 05/10/21 23:09 Active 3 ml NEB Q4HRRT PRN Enoxaparin [Lovenox] Med 05/11/21 21:00 Active 40 mg SUBCUT Q24H Lactated Ringers [Ringers, Lactated] 1,000 ml Med 05/10/21 23:15 Active IV ASDIRECTED Morphine Med 05/10/21 23:15 Active 1 mg IVPUSH Q3H PRN Ondansetron [Zofran] Med 05/10/21 23:09 Active 4 mg IVPUSH Q4H PRN Pantoprazole [ProTONIX IV] 40 mg Med 05/11/21 09:00 Active Sodium Chloride 0.9% [Normal Saline] 10 ml IV DAILY Piperacillin/Tazobactam [Piperacil-Tazobact] 3.375 gm Med 05/11/21 03:00 Ordered Sodium Chloride 0.9% [Normal Saline] 50 ml IV Q8H Potassium Chloride Riders [KCL in Water 40 MEQ/100 ML] Med 05/10/21 23:14 Ordered 40 meq Premix Bag 1 bag IV ONETIME Blood Culture x2 Reflex Set [OM.PC] Stat Oth 05/10/21 21:07 Ordered Sequential Compression Device [OM.PC] Per Unit Routine Oth 07/06/21 23:09 Ordered Resuscitation Status Routine Resus Stat 05/10/21 23:09 Ordered Medication Orders Albuterol/Ipratropium (Albuterol/Ipratropium 3.0-0.5 Mg/3 Ml Neb Soln) 3 ml NEB Q4HRRT PRN PRN Reason: Shortness Of Breath/wheezing Enoxaparin Sodium (Enoxaparin 40 Mg/0.4 Ml Syringe) 40 mg SUBCUT Q24H THOMAS Lactated Ringer's (Ringers, Lactated) 1,000 mls @ 125 mls/hr IV ASDIRECTED THOMAS Pantoprazole Sodium 40 mg/ (Sodium Chloride) 10 mls @ 300 mls/hr IV DAILY THOMAS Potassium Chloride 40 meq/ (Premix) 100 mls @ 25 mls/hr IV ONETIME ONE Stop: 05/11/21 03:13 Piperacillin Sod/Tazobactam (Sod 3.375 gm/ Sodium Chloride) 50 mls @ 100 mls/hr IV Q8H THOMAS Morphine Sulfate (Morphine 2 Mg/Ml Syringe) 1 mg IVPUSH Q3H PRN PRN Reason: Pain (severe 7-10) Ondansetron HCl (Ondansetron 4 Mg/2 Ml Sdv) 4 mg IVPUSH Q4H PRN PRN Reason: Nausea/Vomiting Assessment/Plan Comment:: 45-year-old female admitted for colitis, Some concern of early appendicitis on the CT, surgery has been consulted for this and will be closely following the patient Continue IV Zosyn for now Continue aggressive IV fluid hydration IV PPI daily IV Zofran as needed for nausea and vomiting Follow-up on stool studies including C. difficile Monitor and replete electrolytes daily as necessary We will watch for worsening right lower quadrant pain, fever worsening nausea and vomiting Will start clear diet for now, advance as tolerated Continue supportive care Lovenox for DVT prophylaxis
[2021-05-11] MEDS ORDERED: Acetaminophen 325 MG Tab PO PRN (01:17)
[2021-05-11] MEDS ORDERED: Piperacillin/Tazobactam 3.375 GM in Sodium Chloride 0.9% 50 ML IV SCH ×2 (03:00→09:00)
[2021-05-11] MEDS: Lactated Ringers 1,000 ML IV SCH (04:50)
[2021-05-11 06:40] LABS: BLOOD UREA NITROGEN,BUN 10 mg/dL (7.0-18.0); CARBON DIOXIDE,CO2 23.8 mmol/L (21.0-32.0); CHLORIDE,CL 107 mmol/L (98-107); GLUCOSE RANDOM 103 mg/dL (74-106); POTASSIUM,K 2.7 mmol/L (3.5-5.1); SODIUM,NA 139 mmol/L (136-145)
[2021-05-11] MEDS: Pantoprazole 40 MG in Sodium Chloride 0.9% 10 ML IV SCH (08:38)
[2021-05-11] MEDS: Acidophilus with Citrus Pectin Tab PO SCH (08:38)
--- NOTE | 2021-05-11 10:02 | PCM.CONS ---
H&P History of Present Illness - General Date of Service: 05/11/21 Admit Problem/Dx: Admission Diagnosis/Problem Admission Diagnosis/Problem Colitis Nausea, vomiting, abdominal pain with diarrhea. Source of Information: Patient History Limitations: Reports: No Limitations - History of Present Illness Initial Comments - Free Text/Narative: Patient is a 45-year-old female admitted via the emergency room last night. One week ago she was found to have a strep throat and was started on Augmentin. She took 7-8 doses and then developed significant abdominal pain with nausea, v omiting and diarrhea. No history of rectal bleeding. She was initially evaluated at [facility] and subsequently sent to the emergency room when she was found have a white count in excess of 25,000. CT scan suggested colitis. Surgical consultation and admission were requested. She was subsequently admitted to the hospitalist service. Symptom Onset Date: 05/04/21 Duration of Symptoms: Reports: Day(s):, Getting Worse Location: Reports: Abdomen Quality: Reports: Pressure Severity: Moderate Improves with: Reports: Rest Worsens with: Reports: Eating Context: Reports: Sick Contact. Denies: Activity/Exercise, Lifting, Exertion, Rest, Trauma Associated Symptoms: Reports: No Other Symptoms Throat Pain Score (Numeric/FACES): 8 lower back Pain Score (Numeric/FACES): 4 - Related Data Allergies/Adverse Reactions: Allergies Allergy/AdvReac Type Severity Reaction Status Date / Time No Known Allergies Allergy Verified 05/11/21 03:29 Home Medications: Home Meds Amoxicillin/Clavulanate K [Augmentin 875-125 MG] 1 tab PO BID 05/11/21 [History] Fluconazole [Diflucan] 150 mg PO Q72H PRN 05/11/21 [History] Past Medical History - Past Health History Medical/Surgical History: Denies Medical/Surgical History - Past Surgical History GI Surgical History: Reports: Bariatric Procedure, Cholecystectomy Female Surgical History: Reports: Section, Hysterectomy Social & Family History - Family History Family Medical History: No Pertinent Family History - Tobacco Use Tobacco Use Status *Q: Never Tobacco User Second Hand Smoke Exposure: No - Caffeine Use Caffeine Use: Reports: Soda - Recreational Drug Use Recreational Drug Use: No H&P Review of Systems - Review of Systems: Review Of Systems: See Below General: Reports: Fever HEENT: Reports: No Symptoms Pulmonary: Denies: Shortness of Breath, Wheezing Cardiovascular: Denies: Chest Pain, Palpitations Gastrointestinal: Reports: Abdominal Pain, Anorexia, Diarrhea, Decreased Appetite, Nausea, Vomiting. Denies: Black Stool, Bloody Stool, Hematemesis, Hematochezia, Melena Genitourinary: Denies: Dysuria, Frequency, Burning, Pain Musculoskeletal: Reports: No Symptoms Skin: Denies: Cyanosis, Jaundice, Mottled, Pallor Psychiatric: Denies: Confusion, Depression, Anxiety Neurological: Reports: No Symptoms Hematologic/Lymphatic: Reports: No Symptoms Immunologic: Reports: No Symptoms Exam - Exam Exam: See Below - Vital Signs Vital Signs: Last Vital Signs Temp 97.2 F 05/11/21 08:45 Pulse 76 05/11/21 08:45 Resp 17 05/11/21 08:45 BP 126/67 05/11/21 08:45 Pulse Ox 95 05/11/21 08:45 Weight: 205 lb 3.2 oz - Exam General: Alert, Oriented, Cooperative, Mild Distress HEENT: Conjunctiva Clear, EACs Clear, EOMI, PERRLA. No: Scleral Icterus Neck: Supple, Trachea Midline Lungs: Clear to Auscultation, Normal Respiratory Effort Cardiovascular: Regular Rate, Regular Rhythm, Normal S1, Normal S2. No: Tachycardia, Systolic Murmur, Diastolic Murmur GI/Abdominal Exam: Normal Bowel Sounds, Soft, Non-Tender, No Distention. No: Guarding, Rigid, Rebound (Female) Exam: Deferred Rectal (Female) Exam: Deferred Back Exam: Normal Inspection Extremities: Normal Inspection, Normal Range of Motion, Non-Tender Peripheral Pulses: 4+: Posterior Tibial (L), Posterior Tibial (R), Dorsalis Pedis (L), Dorsalis Pedis (R) Skin: Warm, Dry, Intact Neurological: Cranial Nerves Intact Psychiatric: Alert, Normal Affect, Normal Mood - Patient Data Lab Results Last 24 hrs: Laboratory Results - last 24 hr 05/10/21 05/10/21 05/10/21 Range/Units 16:45 16:45 17:15 WBC 25.69 H (4.0-11.0) K/uL RBC 4.32 (4.30-5.90) M/uL Hgb 12.9 (12.0-16.0) g/dL Hct 38.0 (36.0-46.0) % MCV 88.0 (80.0-98.0) fL MCH 29.9 (27.0-32.0) pg MCHC 33.9 (31.0-37.0) g/dL RDW Std Deviation 45.0 (28.0-62.0) fl RDW Coeff of Pankaj 14 (11.0-15.0) % Plt Count 293 (150-400) K/uL MPV 9.70 (7.40-12.00) fL Neut % (Auto) 88.8 H (48.0-80.0) % Lymph % (Auto) 4.0 L (16.0-40.0) % [place] % (Auto) 7.0 (0.0-15.0) % Eos % (Auto) 0.1 (0.0-7.0) % Baso % (Auto) 0.1 (0.0-1.5) % Neut # (Auto) 22.8 H (1.4-5.7) K/uL Lymph # (Auto) 1.0 (0.6-2.4) K/uL [place] # (Auto) 1.8 H (0.0-0.8) K/uL Eos # (Auto) 0.0 (0.0-0.7) K/uL Baso # (Auto) 0.0 (0.0-0.1) K/uL Nucleated RBC % 0.0 /100WBC Nucleated RBCs # 0 K/uL Sodium 139 (136-145) mmol/L Potassium 3.2 L (3.5-5.1) mmol/L Chloride 103 (98-107) mmol/L Carbon Dioxide 26.3 (21.0-32.0) mmol/L BUN 14 (7.0-18.0) mg/dL Creatinine 1.1 H (0.6-1.0) mg/dL Est Cr Clr Drug Dosing 63.47 mL/min Estimated GFR (MDRD) 54.0 ml/min Glucose 129 H (74-106) mg/dL Lactic Acid (0.4-2.0) mmol/L Calcium 7.8 L (8.5-10.1) mg/dL Phosphorus (2.6-4.7) mg/dL Magnesium (1.8-2.4) mg/dL Total Bilirubin 0.6 (0.2-1.0) mg/dL AST 9 L (15-37) IU/L ALT 17 (14-63) IU/L Alkaline Phosphatase 101 (46-116) U/L Total Protein 6.7 (6.4-8.2) g/dL Albumin 2.9 L (3.4-5.0) g/dL Globulin 3.8 (2.6-4.0) g/dL Albumin/Globulin Ratio 0.8 L (0.9-1.6) Lipase 29 L (73-393) U/L Urine Color Urine Appearance Urine pH (5.0-8.0) Ur Specific [place] (1.001-1.035) Urine Protein (NEGATIVE) mg/dL Urine Glucose (UA) (NEGATIVE) mg/dL Urine Ketones (NEGATIVE) mg/dL Urine Occult Blood (NEGATIVE) Urine Nitrite (NEGATIVE) Urine Bilirubin (NEGATIVE) Urine Urobilinogen (<2.0) EU/dL Ur Leukocyte Esterase (NEGATIVE) Urine RBC (0-2/HPF) Urine WBC (0-5/HPF) Ur Epithelial Cells (NONE-FEW) Urine Bacteria (NEGATIVE) Influenza Type A RNA NEGATIVE (NEGATIVE) Influenza Type B RNA NEGATIVE (NEGATIVE) SARS-CoV-2 RNA (DAVID) NEGATIVE (NEGATIVE) Group A Strep (PCR) (NOT DETECT) 05/10/21 05/10/21 05/10/21 Range/Units 18:10 21:18 22:35 WBC (4.0-11.0) K/uL RBC (4.30-5.90) M/uL Hgb (12.0-16.0) g/dL Hct (36.0-46.0) % MCV (80.0-98.0) fL MCH (27.0-32.0) pg MCHC (31.0-37.0) g/dL RDW Std Deviation (28.0-62.0) fl RDW Coeff of Paknaj (11.0-15.0) % Plt Count (150-400) K/uL MPV (7.40-12.00) fL Neut % (Auto) (48.0-80.0) % Lymph % (Auto) (16.0-40.0) % [place] % (Auto) (0.0-15.0) % Eos % (Auto) (0.0-7.0) % Baso % (Auto) (0.0-1.5) % Neut # (Auto) (1.4-5.7) K/uL Lymph # (Auto) (0.6-2.4) K/uL [place] # (Auto) (0.0-0.8) K/uL Eos # (Auto) (0.0-0.7) K/uL Baso # (Auto) (0.0-0.1) K/uL Nucleated RBC % /100WBC Nucleated RBCs # K/uL Sodium (136-145) mmol/L Potassium (3.5-5.1) mmol/L Chloride (98-107) mmol/L Carbon Dioxide (21.0-32.0) mmol/L BUN (7.0-18.0) mg/dL Creatinine (0.6-1.0) mg/dL Est Cr Clr Drug Dosing mL/min Estimated GFR (MDRD) ml/min Glucose (74-106) mg/dL Lactic Acid 1.0 (0.4-2.0) mmol/L Calcium (8.5-10.1) mg/dL Phosphorus (2.6-4.7) mg/dL Magnesium (1.8-2.4) mg/dL Total Bilirubin (0.2-1.0) mg/dL AST (15-37) IU/L ALT (14-63) IU/L Alkaline Phosphatase (46-116) U/L Total Protein (6.4-8.2) g/dL Albumin (3.4-5.0) g/dL Globulin (2.6-4.0) g/dL Albumin/Globulin Ratio (0.9-1.6) Lipase (73-393) U/L Urine Color YELLOW Urine Appearance CLEAR Urine pH 5.5 (5.0-8.0) Ur Specific [place] 1.020 (1.001-1.035) Urine Protein TRACE H (NEGATIVE) mg/dL Urine Glucose (UA) NEGATIVE (NEGATIVE) mg/dL Urine Ketones NEGATIVE (NEGATIVE) mg/dL Urine Occult Blood NEGATIVE (NEGATIVE) Urine Nitrite NEGATIVE (NEGATIVE) Urine Bilirubin NEGATIVE (NEGATIVE) Urine Urobilinogen 0.2 (<2.0) EU/dL Ur Leukocyte Esterase NEGATIVE (NEGATIVE) Urine RBC 0-2 (0-2/HPF) Urine WBC 0-2 (0-5/HPF) Ur Epithelial Cells FEW (NONE-FEW) Urine Bacteria RARE (NEGATIVE) Influenza Type A RNA (NEGATIVE) Influenza Type B RNA (NEGATIVE) SARS-CoV-2 RNA (DAVID) (NEGATIVE) Group A Strep (PCR) NOT DETECTED (NOT DETECT) 05/11/21 05/11/21 Range/Units 05:30 05:30 WBC 16.36 H (4.0-11.0) K/uL RBC 3.91 L (4.30-5.90) M/uL Hgb 11.4 L (12.0-16.0) g/dL Hct 34.3 L (36.0-46.0) % MCV 87.7 (80.0-98.0) fL MCH 29.2 (27.0-32.0) pg MCHC 33.2 (31.0-37.0) g/dL RDW Std Deviation 45.0 (28.0-62.0) fl RDW Coeff of Pankaj 14 (11.0-15.0) % Plt Count 264 (150-400) K/uL MPV 9.90 (7.40-12.00) fL Neut % (Auto) 87.7 H (48.0-80.0) % Lymph % (Auto) 6.2 L (16.0-40.0) % [place] % (Auto) 5.0 (0.0-15.0) % Eos % (Auto) 1.0 (0.0-7.0) % Baso % (Auto) 0.1 (0.0-1.5) % Neut # (Auto) 14.3 H (1.4-5.7) K/uL Lymph # (Auto) 1.0 (0.6-2.4) K/uL [place] # (Auto) 0.8 (0.0-0.8) K/uL Eos # (Auto) 0.2 (0.0-0.7) K/uL Baso # (Auto) 0.0 (0.0-0.1) K/uL Nucleated RBC % 0.0 /100WBC Nucleated RBCs # 0 K/uL Sodium 139 (136-145) mmol/L Potassium 2.7 L (3.5-5.1) mmol/L Chloride 107 (98-107) mmol/L Carbon Dioxide 23.8 (21.0-32.0) mmol/L BUN 10 (7.0-18.0) mg/dL Creatinine 0.8 (0.6-1.0) mg/dL Est Cr Clr Drug Dosing 87.27 mL/min Estimated GFR (MDRD) > 60.0 ml/min Glucose 103 (74-106) mg/dL Lactic Acid (0.4-2.0) mmol/L Calcium 7.5 L (8.5-10.1) mg/dL Phosphorus 2.7 (2.6-4.7) mg/dL Magnesium 1.6 L (1.8-2.4) mg/dL Total Bilirubin (0.2-1.0) mg/dL AST (15-37) IU/L ALT (14-63) IU/L Alkaline Phosphatase (46-116) U/L Total Protein (6.4-8.2) g/dL Albumin (3.4-5.0) g/dL Globulin (2.6-4.0) g/dL Albumin/Globulin Ratio (0.9-1.6) Lipase (73-393) U/L Urine Color Urine Appearance Urine pH (5.0-8.0) Ur Specific [place] (1.001-1.035) Urine Protein (NEGATIVE) mg/dL Urine Glucose (UA) (NEGATIVE) mg/dL Urine Ketones (NEGATIVE) mg/dL Urine Occult Blood (NEGATIVE) Urine Nitrite (NEGATIVE) Urine Bilirubin (NEGATIVE) Urine Urobilinogen (<2.0) EU/dL Ur Leukocyte Esterase (NEGATIVE) Urine RBC (0-2/HPF) Urine WBC (0-5/HPF) Ur Epithelial Cells (NONE-FEW) Urine Bacteria (NEGATIVE) Influenza Type A RNA (NEGATIVE) Influenza Type B RNA (NEGATIVE) SARS-CoV-2 RNA (DAVID) (NEGATIVE) Group A Strep (PCR) (NOT DETECT) Result Diagrams: 05/11/21 05:30 05/11/21 05:30 Vikash Results Last 24 hrs: Microbiology 05/11/21 06:00 C. difficile Antigen & Toxins A,B - Final Stool / Feces Sepsis Event Note - Evaluation Sepsis Screening Result: No Definite Risk - Focused Exam Vital Signs: Vital Signs Temp Pulse Resp BP Pulse Ox 05/11/21 08:45 97.2 F 76 17 126/67 95 05/11/21 03:35 97 F 76 16 112/61 96 05/10/21 22:20 97.2 F 89 17 124/73 97 Consult PN Assessment/Plan Procedures: Procedures CHORIONIC GONADOTROPIN ASSAY (11/07/19) COMPLETE CBC W/AUTO DIFF WBC (11/07/19) ELECTROCARDIOGRAM TRACING (11/07/19) EMERGENCY DEPT VISIT (11/07/19) METABOLIC PANEL TOTAL CA (11/07/19) ROUTINE VENIPUNCTURE (11/07/19) THER/PROPH/DIAG IV INF INIT (10/17/18) TISSUE EXAM BY PATHOLOGIST (11/09/15) X-RAY XM UPR GI TRC 2CNTRST (05/03/18) (1) Colitis SNOMED Code(s): 29287723 Code(s): K52.9 - NONINFECTIVE GASTROENTERITIS AND COLITIS, UNSPECIFIED Priority: High Current Visit: Yes (2) H/O gastric bypass SNOMED Code(s): 830029098 Code(s): Z98.84 - BARIATRIC SURGERY STATUS Priority: Low Current Visit: Yes (3) Hx of cholecystectomy SNOMED Code(s): 108751870, 017235102 Code(s): Z90.49 - ACQUIRED ABSENCE OF OTHER SPECIFIED PARTS OF DIGESTIVE TRACT Priority: Low Current Visit: Yes Problem List Initiated/Reviewed/Updated: Yes Plan: I suspect this is an antibiotic related colitis secondary to the use of Augmentin. She has already discontinued the Augmentin and now is starting to feel better. I note her white count is down to 16,000 today. Her abdominal exam is completely benign and therefore, I do not think this is appendicitis. I did suggest to her the possibility of re-colonizing her GI tract with lact obacillus. She is unable to tolerate any dairy products, so this would have to be by capsule or pill form.
[2021-05-11] MEDS: Vancomycin 125 MG Cap PO SCH ×3 (10:23→17:10)
[2021-05-11] MEDS ORDERED: Potassium Chloride 20 MEQ Tab.ER PO ONE (10:33)
[2021-05-11] MEDS ORDERED: Magnesium Sulfate/Water 2 GM in Premix Bag 1 BAG IV ONE (10:35)
[2021-05-11] MEDS ORDERED: Sodium Chloride 0.9% with KCl 1,000 ML IV ONE (10:45)
--- NOTE | 2021-05-11 13:12 | PCM.PN ---
- General Info Date of Service: 05/11/21 Admission Dx/Problem (Free Text): Admission Diagnosis/Problem Admission Diagnosis/Problem Colitis Nausea, vomiting, abdominal pain with diarrhea. Subjective Update: Patient seen at bedside, states she feels much better today, abdominal pain is better but still feels sore in her upper abdomen. Continues to have watery diarrhea. C. difficile came back positive patient has been started on vancomycin oral Functional Status: Reports: Pain Controlled, Ambulating, Urinating - Review of Systems General: Reports: Weakness, Fatigue. Denies: Fever Pulmonary: Denies: Shortness of Breath, Pleuritic Chest Pain Cardiovascular: Denies: Chest Pain, Palpitations, Other Gastrointestinal: Reports: Abdominal Pain, Decreased Appetite, Flatus. Denies: Constipation, Difficulty Swallowing, Hematochezia, Nausea, Vomiting Genitourinary: Denies: Dysuria, Frequency, Burning Musculoskeletal: Denies: Neck Pain, Shoulder Pain, Arm Pain Skin: Denies: Cyanosis, Jaundice, Mottled Neurological: Denies: Confusion, Dizziness, Headache - Patient Data Vitals - Most Recent: Last Vital Signs Temp 36.2 C 05/11/21 08:45 Pulse 76 05/11/21 08:45 Resp 17 05/11/21 08:45 BP 126/67 05/11/21 08:45 Pulse Ox 95 05/11/21 08:45 Weight - Most Recent: 93.077 kg I&O - Last 24 Hours: Intake & Output 05/10/21 05/11/21 05/11/21 22:59 06:59 14:59 Intake Total 500 Output Total 400 Balance 100 Lab Results Last 24 Hours: Laboratory Results - last 24 hr 05/10/21 05/10/21 05/10/21 Range/Units 16:45 16:45 17:15 WBC 25.69 H (4.0-11.0) K/uL RBC 4.32 (4.30-5.90) M/uL Hgb 12.9 (12.0-16.0) g/dL Hct 38.0 (36.0-46.0) % MCV 88.0 (80.0-98.0) fL MCH 29.9 (27.0-32.0) pg MCHC 33.9 (31.0-37.0) g/dL RDW Std Deviation 45.0 (28.0-62.0) fl RDW Coeff of Pankaj 14 (11.0-15.0) % Plt Count 293 (150-400) K/uL MPV 9.70 (7.40-12.00) fL Neut % (Auto) 88.8 H (48.0-80.0) % Lymph % (Auto) 4.0 L (16.0-40.0) % [place] % (Auto) 7.0 (0.0-15.0) % Eos % (Auto) 0.1 (0.0-7.0) % Baso % (Auto) 0.1 (0.0-1.5) % Neut # (Auto) 22.8 H (1.4-5.7) K/uL Lymph # (Auto) 1.0 (0.6-2.4) K/uL [place] # (Auto) 1.8 H (0.0-0.8) K/uL Eos # (Auto) 0.0 (0.0-0.7) K/uL Baso # (Auto) 0.0 (0.0-0.1) K/uL Nucleated RBC % 0.0 /100WBC Nucleated RBCs # 0 K/uL Sodium 139 (136-145) mmol/L Potassium 3.2 L (3.5-5.1) mmol/L Chloride 103 (98-107) mmol/L Carbon Dioxide 26.3 (21.0-32.0) mmol/L BUN 14 (7.0-18.0) mg/dL Creatinine 1.1 H (0.6-1.0) mg/dL Est Cr Clr Drug Dosing 63.47 mL/min Estimated GFR (MDRD) 54.0 ml/min Glucose 129 H (74-106) mg/dL Lactic Acid (0.4-2.0) mmol/L Calcium 7.8 L (8.5-10.1) mg/dL Phosphorus (2.6-4.7) mg/dL Magnesium (1.8-2.4) mg/dL Total Bilirubin 0.6 (0.2-1.0) mg/dL AST 9 L (15-37) IU/L ALT 17 (14-63) IU/L Alkaline Phosphatase 101 (46-116) U/L Total Protein 6.7 (6.4-8.2) g/dL Albumin 2.9 L (3.4-5.0) g/dL Globulin 3.8 (2.6-4.0) g/dL Albumin/Globulin Ratio 0.8 L (0.9-1.6) Lipase 29 L (73-393) U/L Urine Color Urine Appearance Urine pH (5.0-8.0) Ur Specific [place] (1.001-1.035) Urine Protein (NEGATIVE) mg/dL Urine Glucose (UA) (NEGATIVE) mg/dL Urine Ketones (NEGATIVE) mg/dL Urine Occult Blood (NEGATIVE) Urine Nitrite (NEGATIVE) Urine Bilirubin (NEGATIVE) Urine Urobilinogen (<2.0) EU/dL Ur Leukocyte Esterase (NEGATIVE) Urine RBC (0-2/HPF) Urine WBC (0-5/HPF) Ur Epithelial Cells (NONE-FEW) Urine Bacteria (NEGATIVE) Influenza Type A RNA NEGATIVE (NEGATIVE) Influenza Type B RNA NEGATIVE (NEGATIVE) SARS-CoV-2 RNA (DAVID) NEGATIVE (NEGATIVE) Group A Strep (PCR) (NOT DETECT) 05/10/21 05/10/21 05/10/21 Range/Units 18:10 21:18 22:35 WBC (4.0-11.0) K/uL RBC (4.30-5.90) M/uL Hgb (12.0-16.0) g/dL Hct (36.0-46.0) % MCV (80.0-98.0) fL MCH (27.0-32.0) pg MCHC (31.0-37.0) g/dL RDW Std Deviation (28.0-62.0) fl RDW Coeff of Pankaj (11.0-15.0) % Plt Count (150-400) K/uL MPV (7.40-12.00) fL Neut % (Auto) (48.0-80.0) % Lymph % (Auto) (16.0-40.0) % [place] % (Auto) (0.0-15.0) % Eos % (Auto) (0.0-7.0) % Baso % (Auto) (0.0-1.5) % Neut # (Auto) (1.4-5.7) K/uL Lymph # (Auto) (0.6-2.4) K/uL [place] # (Auto) (0.0-0.8) K/uL Eos # (Auto) (0.0-0.7) K/uL Baso # (Auto) (0.0-0.1) K/uL Nucleated RBC % /100WBC Nucleated RBCs # K/uL Sodium (136-145) mmol/L Potassium (3.5-5.1) mmol/L Chloride (98-107) mmol/L Carbon Dioxide (21.0-32.0) mmol/L BUN (7.0-18.0) mg/dL Creatinine (0.6-1.0) mg/dL Est Cr Clr Drug Dosing mL/min Estimated GFR (MDRD) ml/min Glucose (74-106) mg/dL Lactic Acid 1.0 (0.4-2.0) mmol/L Calcium (8.5-10.1) mg/dL Phosphorus (2.6-4.7) mg/dL Magnesium (1.8-2.4) mg/dL Total Bilirubin (0.2-1.0) mg/dL AST (15-37) IU/L ALT (14-63) IU/L Alkaline Phosphatase (46-116) U/L Total Protein (6.4-8.2) g/dL Albumin (3.4-5.0) g/dL Globulin (2.6-4.0) g/dL Albumin/Globulin Ratio (0.9-1.6) Lipase (73-393) U/L Urine Color YELLOW Urine Appearance CLEAR Urine pH 5.5 (5.0-8.0) Ur Specific [place] 1.020 (1.001-1.035) Urine Protein TRACE H (NEGATIVE) mg/dL Urine Glucose (UA) NEGATIVE (NEGATIVE) mg/dL Urine Ketones NEGATIVE (NEGATIVE) mg/dL Urine Occult Blood NEGATIVE (NEGATIVE) Urine Nitrite NEGATIVE (NEGATIVE) Urine Bilirubin NEGATIVE (NEGATIVE) Urine Urobilinogen 0.2 (<2.0) EU/dL Ur Leukocyte Esterase NEGATIVE (NEGATIVE) Urine RBC 0-2 (0-2/HPF) Urine WBC 0-2 (0-5/HPF) Ur Epithelial Cells FEW (NONE-FEW) Urine Bacteria RARE (NEGATIVE) Influenza Type A RNA (NEGATIVE) Influenza Type B RNA (NEGATIVE) SARS-CoV-2 RNA (DAVID) (NEGATIVE) Group A Strep (PCR) NOT DETECTED (NOT DETECT) 05/11/21 05/11/21 Range/Units 05:30 05:30 WBC 16.36 H (4.0-11.0) K/uL RBC 3.91 L (4.30-5.90) M/uL Hgb 11.4 L (12.0-16.0) g/dL Hct 34.3 L (36.0-46.0) % MCV 87.7 (80.0-98.0) fL MCH 29.2 (27.0-32.0) pg MCHC 33.2 (31.0-37.0) g/dL RDW Std Deviation 45.0 (28.0-62.0) fl RDW Coeff of Pankaj 14 (11.0-15.0) % Plt Count 264 (150-400) K/uL MPV 9.90 (7.40-12.00) fL Neut % (Auto) 87.7 H (48.0-80.0) % Lymph % (Auto) 6.2 L (16.0-40.0) % [place] % (Auto) 5.0 (0.0-15.0) % Eos % (Auto) 1.0 (0.0-7.0) % Baso % (Auto) 0.1 (0.0-1.5) % Neut # (Auto) 14.3 H (1.4-5.7) K/uL Lymph # (Auto) 1.0 (0.6-2.4) K/uL [place] # (Auto) 0.8 (0.0-0.8) K/uL Eos # (Auto) 0.2 (0.0-0.7) K/uL Baso # (Auto) 0.0 (0.0-0.1) K/uL Nucleated RBC % 0.0 /100WBC Nucleated RBCs # 0 K/uL Sodium 139 (136-145) mmol/L Potassium 2.7 L (3.5-5.1) mmol/L Chloride 107 (98-107) mmol/L Carbon Dioxide 23.8 (21.0-32.0) mmol/L BUN 10 (7.0-18.0) mg/dL Creatinine 0.8 (0.6-1.0) mg/dL Est Cr Clr Drug Dosing 87.27 mL/min Estimated GFR (MDRD) > 60.0 ml/min Glucose 103 (74-106) mg/dL Lactic Acid (0.4-2.0) mmol/L Calcium 7.5 L (8.5-10.1) mg/dL Phosphorus 2.7 (2.6-4.7) mg/dL Magnesium 1.6 L (1.8-2.4) mg/dL Total Bilirubin (0.2-1.0) mg/dL AST (15-37) IU/L ALT (14-63) IU/L Alkaline Phosphatase (46-116) U/L Total Protein (6.4-8.2) g/dL Albumin (3.4-5.0) g/dL Globulin (2.6-4.0) g/dL Albumin/Globulin Ratio (0.9-1.6) Lipase (73-393) U/L Urine Color Urine Appearance Urine pH (5.0-8.0) Ur Specific [place] (1.001-1.035) Urine Protein (NEGATIVE) mg/dL Urine Glucose (UA) (NEGATIVE) mg/dL Urine Ketones (NEGATIVE) mg/dL Urine Occult Blood (NEGATIVE) Urine Nitrite (NEGATIVE) Urine Bilirubin (NEGATIVE) Urine Urobilinogen (<2.0) EU/dL Ur Leukocyte Esterase (NEGATIVE) Urine RBC (0-2/HPF) Urine WBC (0-5/HPF) Ur Epithelial Cells (NONE-FEW) Urine Bacteria (NEGATIVE) Influenza Type A RNA (NEGATIVE) Influenza Type B RNA (NEGATIVE) SARS-CoV-2 RNA (DAVID) (NEGATIVE) Group A Strep (PCR) (NOT DETECT) Vikash Results Last 24 Hours: Microbiology 05/11/21 06:00 C. difficile Antigen & Toxins A,B - Final Stool / Feces Med Orders - Current: Current Medications Acetaminophen (Acetaminophen 325 Mg Tab) 650 mg PO Q4H PRN PRN Reason: Pain Last Admin: 05/11/21 01:27 Dose: 650 mg Documented by: Acidophilus/Pectin (Acidophilus With [place] Pectin Tab) 1 tab PO DAILY THOMAS Last Admin: 05/11/21 08:38 Dose: 1 tab Documented by: Albuterol/Ipratropium (Albuterol/Ipratropium 3.0-0.5 Mg/3 Ml Neb Soln) 3 ml NEB Q4HRRT PRN PRN Reason: Shortness Of Breath/wheezing Enoxaparin Sodium (Enoxaparin 40 Mg/0.4 Ml Syringe) 40 mg SUBCUT Q24H [facility] Lactated Ringer's (Ringers, Lactated) 1,000 mls @ 125 mls/hr IV ASDIRECTED [facility] Last Admin: 05/11/21 04:50 Dose: 125 mls/hr Documented by: Pantoprazole Sodium 40 mg/ (Sodium Chloride) 10 mls @ 300 mls/hr IV DAILY [facility] Last Admin: 05/11/21 08:38 Dose: 300 mls/hr Documented by: Potassium Chloride/Sodium Chloride (Normal Saline With 40 Meq Kcl) 1,000 mls @ 125 mls/hr IV ASDIRECTED ONE Stop: 05/11/21 18:44 Last Admin: 05/11/21 11:01 Dose: 125 mls/hr Documented by: Morphine Sulfate (Morphine 2 Mg/Ml Syringe) 1 mg IVPUSH Q3H PRN PRN Reason: Pain (severe 7-10) Ondansetron HCl (Ondansetron 4 Mg/2 Ml Sdv) 4 mg IVPUSH Q4H PRN PRN Reason: Nausea/Vomiting Vancomycin HCl (Vancomycin 125 Mg Cap) 125 mg PO QID [facility] Last Admin: 05/11/21 10:23 Dose: 125 mg Documented by: Discontinued Medications Enoxaparin Sodium (Enoxaparin 40 Mg/0.4 Ml Syringe) 40 mg SUBCUT NOW ONE Stop: 05/10/21 23:16 Sodium Chloride (Normal Saline) 1,000 mls @ 999 mls/hr IV BOLUS ONE Stop: 05/10/21 16:53 Last Admin: 05/10/21 16:51 Dose: 999 mls/hr Documented by: Piperacillin Sod/Tazobactam (Sod 3.375 gm/ Sodium Chloride) 50 mls @ 100 mls/hr IV ONETIME ONE Stop: 05/10/21 19:16 Last Admin: 05/10/21 19:54 Dose: 100 mls/hr Documented by: Metronidazole 500 mg/ Premix 100 mls @ 100 mls/hr IV ONETIME ONE Stop: 05/10/21 19:50 Last Admin: 05/10/21 19:56 Dose: 100 mls/hr Documented by: Sodium Chloride (Normal Saline) 1,000 mls @ 800 mls/hr IV STAT ONE Stop: 05/10/21 20:33 Last Admin: 05/10/21 19:50 Dose: 800 mls/hr Documented by: Metronidazole (Flagyl In Ns 500 Mg/100 Ml) Confirm Administered Dose 100 mls @ as directed .ROUTE .STK-MED ONE Stop: 05/10/21 19:40 Last Admin: 05/10/21 19:56 Dose: Not Given Documented by: Potassium Chloride 40 meq/ (Premix) 100 mls @ 25 mls/hr IV ONETIME ONE Stop: 05/11/21 03:13 Last Admin: 05/11/21 00:36 Dose: 25 mls/hr Documented by: Piperacillin Sod/Tazobactam (Sod 3.375 gm/ Sodium Chloride) 50 mls @ 100 mls/hr IV Q8H [facility] Last Admin: 05/11/21 03:30 Dose: 100 mls/hr Documented by: Piperacillin Sod/Tazobactam (Sod 3.375 gm/ Sodium Chloride) 50 mls @ 100 mls/hr IV Q6H [facility] Last Admin: 05/11/21 09:20 Dose: 100 mls/hr Documented by: Magnesium Sulfate 2 gm/ Premix 50 mls @ 25 mls/hr IV ONETIME ONE Stop: 05/11/21 12:34 Iopamidol (Iopamidol 755 Mg/Ml 500 Ml Multipack Bottle) 100 ml IVPUSH ONETIME STA Stop: 05/10/21 17:36 Last Admin: 05/10/21 17:36 Dose: 100 ml Documented by: Ketorolac Tromethamine (Ketorolac 30 Mg/Ml Sdv) 30 mg IVPUSH ONETIME ONE Stop: 05/10/21 15:54 Last Admin: 05/10/21 16:52 Dose: 30 mg Documented by: Ondansetron HCl (Ondansetron 4 Mg/2 Ml Sdv) 4 mg IVPUSH ONETIME ONE Stop: 05/10/21 15:54 Last Admin: 05/10/21 16:52 Dose: 4 mg Documented by: Potassium Chloride (Potassium Chloride 20 Meq Tab.Er) 40 meq PO ONETIME ONE Stop: 05/11/21 10:34 Last Admin: 05/11/21 11:29 Dose: 40 meq Documented by: - Exam General: Alert, Oriented, Cooperative Neck: Supple Lungs: Clear to Auscultation, Normal Respiratory Effort Cardiovascular: Regular Rate, Regular Rhythm GI/Abdominal Exam: Normal Bowel Sounds, Soft, Non-Tender Extremities: Normal Inspection Skin: Warm, Intact Neurological: No New Focal Deficit Psy/Mental Status: Alert, Normal Affect, Normal Mood - Patient Data Lab Results Last 24 hrs: Laboratory Results - last 24 hr 05/10/21 05/10/21 05/10/21 Range/Units 16:45 16:45 17:15 WBC 25.69 H (4.0-11.0) K/uL RBC 4.32 (4.30-5.90) M/uL Hgb 12.9 (12.0-16.0) g/dL Hct 38.0 (36.0-46.0) % MCV 88.0 (80.0-98.0) fL MCH 29.9 (27.0-32.0) pg MCHC 33.9 (31.0-37.0) g/dL RDW Std Deviation 45.0 (28.0-62.0) fl RDW Coeff of Pankaj 14 (11.0-15.0) % Plt Count 293 (150-400) K/uL MPV 9.70 (7.40-12.00) fL Neut % (Auto) 88.8 H (48.0-80.0) % Lymph % (Auto) 4.0 L (16.0-40.0) % [place] % (Auto) 7.0 (0.0-15.0) % Eos % (Auto) 0.1 (0.0-7.0) % Baso % (Auto) 0.1 (0.0-1.5) % Neut # (Auto) 22.8 H (1.4-5.7) K/uL Lymph # (Auto) 1.0 (0.6-2.4) K/uL [place] # (Auto) 1.8 H (0.0-0.8) K/uL Eos # (Auto) 0.0 (0.0-0.7) K/uL Baso # (Auto) 0.0 (0.0-0.1) K/uL Nucleated RBC % 0.0 /100WBC Nucleated RBCs # 0 K/uL Sodium 139 (136-145) mmol/L Potassium 3.2 L (3.5-5.1) mmol/L Chloride 103 (98-107) mmol/L Carbon Dioxide 26.3 (21.0-32.0) mmol/L BUN 14 (7.0-18.0) mg/dL Creatinine 1.1 H (0.6-1.0) mg/dL Est Cr Clr Drug Dosing 63.47 mL/min Estimated GFR (MDRD) 54.0 ml/min Glucose 129 H (74-106) mg/dL Lactic Acid (0.4-2.0) mmol/L Calcium 7.8 L (8.5-10.1) mg/dL Phosphorus (2.6-4.7) mg/dL Magnesium (1.8-2.4) mg/dL Total Bilirubin 0.6 (0.2-1.0) mg/dL AST 9 L (15-37) IU/L ALT 17 (14-63) IU/L Alkaline Phosphatase 101 (46-116) U/L Total Protein 6.7 (6.4-8.2) g/dL Albumin 2.9 L (3.4-5.0) g/dL Globulin 3.8 (2.6-4.0) g/dL Albumin/Globulin Ratio 0.8 L (0.9-1.6) Lipase 29 L (73-393) U/L Urine Color Urine Appearance Urine pH (5.0-8.0) Ur Specific [place] (1.001-1.035) Urine Protein (NEGATIVE) mg/dL Urine Glucose (UA) (NEGATIVE) mg/dL Urine Ketones (NEGATIVE) mg/dL Urine Occult Blood (NEGATIVE) Urine Nitrite (NEGATIVE) Urine Bilirubin (NEGATIVE) Urine Urobilinogen (<2.0) EU/dL Ur Leukocyte Esterase (NEGATIVE) Urine RBC (0-2/HPF) Urine WBC (0-5/HPF) Ur Epithelial Cells (NONE-FEW) Urine Bacteria (NEGATIVE) Influenza Type A RNA NEGATIVE (NEGATIVE) Influenza Type B RNA NEGATIVE (NEGATIVE) SARS-CoV-2 RNA (DAVID) NEGATIVE (NEGATIVE) Group A Strep (PCR) (NOT DETECT) 05/10/21 05/10/21 05/10/21 Range/Units 18:10 21:18 22:35 WBC (4.0-11.0) K/uL RBC (4.30-5.90) M/uL Hgb (12.0-16.0) g/dL Hct (36.0-46.0) % MCV (80.0-98.0) fL MCH (27.0-32.0) pg MCHC (31.0-37.0) g/dL RDW Std Deviation (28.0-62.0) fl RDW Coeff of Pankaj (11.0-15.0) % Plt Count (150-400) K/uL MPV (7.40-12.00) fL Neut % (Auto) (48.0-80.0) % Lymph % (Auto) (16.0-40.0) % [place] % (Auto) (0.0-15.0) % Eos % (Auto) (0.0-7.0) % Baso % (Auto) (0.0-1.5) % Neut # (Auto) (1.4-5.7) K/uL Lymph # (Auto) (0.6-2.4) K/uL [place] # (Auto) (0.0-0.8) K/uL Eos # (Auto) (0.0-0.7) K/uL Baso # (Auto) (0.0-0.1) K/uL Nucleated RBC % /100WBC Nucleated RBCs # K/uL Sodium (136-145) mmol/L Potassium (3.5-5.1) mmol/L Chloride (98-107) mmol/L Carbon Dioxide (21.0-32.0) mmol/L BUN (7.0-18.0) mg/dL Creatinine (0.6-1.0) mg/dL Est Cr Clr Drug Dosing mL/min Estimated GFR (MDRD) ml/min Glucose (74-106) mg/dL Lactic Acid 1.0 (0.4-2.0) mmol/L Calcium (8.5-10.1) mg/dL Phosphorus (2.6-4.7) mg/dL Magnesium (1.8-2.4) mg/dL Total Bilirubin (0.2-1.0) mg/dL AST (15-37) IU/L ALT (14-63) IU/L Alkaline Phosphatase (46-116) U/L Total Protein (6.4-8.2) g/dL Albumin (3.4-5.0) g/dL Globulin (2.6-4.0) g/dL Albumin/Globulin Ratio (0.9-1.6) Lipase (73-393) U/L Urine Color YELLOW Urine Appearance CLEAR Urine pH 5.5 (5.0-8.0) Ur Specific [place] 1.020 (1.001-1.035) Urine Protein TRACE H (NEGATIVE) mg/dL Urine Glucose (UA) NEGATIVE (NEGATIVE) mg/dL Urine Ketones NEGATIVE (NEGATIVE) mg/dL Urine Occult Blood NEGATIVE (NEGATIVE) Urine Nitrite NEGATIVE (NEGATIVE) Urine Bilirubin NEGATIVE (NEGATIVE) Urine Urobilinogen 0.2 (<2.0) EU/dL Ur Leukocyte Esterase NEGATIVE (NEGATIVE) Urine RBC 0-2 (0-2/HPF) Urine WBC 0-2 (0-5/HPF) Ur Epithelial Cells FEW (NONE-FEW) Urine Bacteria RARE (NEGATIVE) Influenza Type A RNA (NEGATIVE) Influenza Type B RNA (NEGATIVE) SARS-CoV-2 RNA (DAVID) (NEGATIVE) Group A Strep (PCR) NOT DETECTED (NOT DETECT) 05/11/21 05/11/21 Range/Units 05:30 05:30 WBC 16.36 H (4.0-11.0) K/uL RBC 3.91 L (4.30-5.90) M/uL Hgb 11.4 L (12.0-16.0) g/dL Hct 34.3 L (36.0-46.0) % MCV 87.7 (80.0-98.0) fL MCH 29.2 (27.0-32.0) pg MCHC 33.2 (31.0-37.0) g/dL RDW Std Deviation 45.0 (28.0-62.0) fl RDW Coeff of Pankaj 14 (11.0-15.0) % Plt Count 264 (150-400) K/uL MPV 9.90 (7.40-12.00) fL Neut % (Auto) 87.7 H (48.0-80.0) % Lymph % (Auto) 6.2 L (16.0-40.0) % [place] % (Auto) 5.0 (0.0-15.0) % Eos % (Auto) 1.0 (0.0-7.0) % Baso % (Auto) 0.1 (0.0-1.5) % Neut # (Auto) 14.3 H (1.4-5.7) K/uL Lymph # (Auto) 1.0 (0.6-2.4) K/uL [place] # (Auto) 0.8 (0.0-0.8) K/uL Eos # (Auto) 0.2 (0.0-0.7) K/uL Baso # (Auto) 0.0 (0.0-0.1) K/uL Nucleated RBC % 0.0 /100WBC Nucleated RBCs # 0 K/uL Sodium 139 (136-145) mmol/L Potassium 2.7 L (3.5-5.1) mmol/L Chloride 107 (98-107) mmol/L Carbon Dioxide 23.8 (21.0-32.0) mmol/L BUN 10 (7.0-18.0) mg/dL Creatinine 0.8 (0.6-1.0) mg/dL Est Cr Clr Drug Dosing 87.27 mL/min Estimated GFR (MDRD) > 60.0 ml/min Glucose 103 (74-106) mg/dL Lactic Acid (0.4-2.0) mmol/L Calcium 7.5 L (8.5-10.1) mg/dL Phosphorus 2.7 (2.6-4.7) mg/dL Magnesium 1.6 L (1.8-2.4) mg/dL Total Bilirubin (0.2-1.0) mg/dL AST (15-37) IU/L ALT (14-63) IU/L Alkaline Phosphatase (46-116) U/L Total Protein (6.4-8.2) g/dL Albumin (3.4-5.0) g/dL Globulin (2.6-4.0) g/dL Albumin/Globulin Ratio (0.9-1.6) Lipase (73-393) U/L Urine Color Urine Appearance Urine pH (5.0-8.0) Ur Specific [place] (1.001-1.035) Urine Protein (NEGATIVE) mg/dL Urine Glucose (UA) (NEGATIVE) mg/dL Urine Ketones (NEGATIVE) mg/dL Urine Occult Blood (NEGATIVE) Urine Nitrite (NEGATIVE) Urine Bilirubin (NEGATIVE) Urine Urobilinogen (<2.0) EU/dL Ur Leukocyte Esterase (NEGATIVE) Urine RBC (0-2/HPF) Urine WBC (0-5/HPF) Ur Epithelial Cells (NONE-FEW) Urine Bacteria (NEGATIVE) Influenza Type A RNA (NEGATIVE) Influenza Type B RNA (NEGATIVE) SARS-CoV-2 RNA (DAVID) (NEGATIVE) Group A Strep (PCR) (NOT DETECT) Result Diagrams: 05/11/21 05:30 05/11/21 05:30 Vikash Results Last 24 hrs: Microbiology 05/11/21 06:00 C. difficile Antigen & Toxins A,B - Final Stool / Feces Sepsis Event Note - Evaluation Sepsis Screening Result: No Definite Risk - Focused Exam Vital Signs: Vital Signs Temp Pulse Resp BP Pulse Ox 05/11/21 08:45 36.2 C 76 17 126/67 95 05/11/21 03:35 36.1 C 76 16 112/61 96 - Problem List & Annotations (1) H/O gastric bypass SNOMED Code(s): 247518656 Code(s): Z98.84 - BARIATRIC SURGERY STATUS Status: Acute Priority: Low Current Visit: Yes (2) Hx of cholecystectomy SNOMED Code(s): 216017008, 680343344 Code(s): Z90.49 - ACQUIRED ABSENCE OF OTHER SPECIFIED PARTS OF DIGESTIVE TRACT Status: Acute Priority: Low Current Visit: Yes (3) Colitis SNOMED Code(s): 67759814 Code(s): K52.9 - NONINFECTIVE GASTROENTERITIS AND COLITIS, UNSPECIFIED Status: Acute Priority: High Current Visit: Yes (4) Hypokalemia SNOMED Code(s): 83947029 Code(s): E87.6 - HYPOKALEMIA Status: Acute Current Visit: Yes - Problem List Review Problem List Initiated/Reviewed/Updated: Yes - My Orders Last 24 Hours: My Active Orders 05/10/21 Dinner Clear Liquid Diet [DIET] 05/10/21 23:09 Ambulate [RC] ASDIRECTED Oxygen Therapy [RC] PRN VTE/DVT Education [RC] PER UNIT ROUTINE Vital Signs [RC] Q4H Albuterol/Ipratropium [DuoNeb 3.0-0.5 MG/3 ML] 3 ml NEB Q4HRRT PRN Ondansetron [Zofran] 4 mg IVPUSH Q4H PRN Sequential Compression Device [OM.PC] Per Unit Routine Resuscitation Status Routine 05/10/21 23:10 Antiembolic Devices [RC] PER UNIT ROUTINE 05/10/21 23:11 RT Aerosol Therapy [RC] ASDIRECTED 05/10/21 23:15 Lactated Ringers [Ringers, Lactated] 1,000 ml IV ASDIRECTED Morphine 1 mg IVPUSH Q3H PRN 05/11/21 01:17 Acetaminophen [TylenoL] 650 mg PO Q4H PRN 05/11/21 09:00 Pantoprazole [ProTONIX IV] 40 mg Sodium Chloride 0.9% [Normal Saline] 10 ml IV DAILY 05/11/21 21:00 Enoxaparin [Lovenox] 40 mg SUBCUT Q24H - Plan Plan:: 45-year-old female admitted for colitis, Some concern of early appendicitis on the CT, surgery has been consulted not convinced its appendicitis Started on oral vancomycin, stopped Zosyn Continue aggressive IV fluid hydration IV PPI daily IV Zofran as needed for nausea and vomiting Monitor and replete electrolytes daily as necessary We will watch for worsening right lower quadrant pain, fever worsening nausea and vomiting Advance as tolerated Continue supportive care Lovenox for DVT prophylaxis
[2021-05-11] MEDS ORDERED: Enoxaparin 40 MG/0.4 ML Syringe SUBCUT SCH (21:00)
[2021-05-12] MEDS: Vancomycin 125 MG Cap PO SCH ×3 (00:28→11:56)
[2021-05-12] MEDS: Lactated Ringers 1,000 ML IV SCH (02:32)
[2021-05-12 06:20] LABS: BLOOD UREA NITROGEN,BUN 2 mg/dL (7.0-18.0); CARBON DIOXIDE,CO2 24.6 mmol/L (21.0-32.0); CHLORIDE,CL 110 mmol/L (98-107); GLUCOSE RANDOM 95 mg/dL (74-106); POTASSIUM,K 3.1 mmol/L (3.5-5.1); SODIUM,NA 142 mmol/L (136-145)
[2021-05-12] MEDS ORDERED: Potassium Chloride 20 MEQ Tab.ER PO ONE ×2 (07:53→10:38)
[2021-05-12] MEDS: Sodium Chloride 0.9% with KCl 1,000 ML IV ONE ×2 (09:10→10:50)
[2021-05-12] MEDS: Pantoprazole 40 MG in Sodium Chloride 0.9% 10 ML IV SCH (09:13)
[2021-05-12] MEDS: Phosphorus #1 250 MG Tab PO SCH ×2 (09:21→11:57)
[2021-05-12] MEDS: Acidophilus with Citrus Pectin Tab PO SCH (09:25)
[2021-05-12] MEDS ORDERED: Lactated Ringers 1,000 ML IV ONE (10:31)
--- NOTE | 2021-05-12 12:33 | PCM.DCSUM1 ---
Discharge Summary - Hospital Course Free Text/Narrative:: Patient is a 45-year-old female with past medical history of bariatric surgery, cholecystectomy, hysterectomy who comes in secondary to worsening nausea, vomiting, generalized abdominal pain and diarrhea for the past 2 to 3 days. Patient states that she suffered from severe sore throat earlier starting last week on Sunday which progressively got worse. She had white plaques in the back of her throat. She went to see her primary care doctor who started her for strep throat infection on Augmentin. Patient states that Augmentin was pretty harsh on her stomach but she finished 7 doses out of 10. Following that patient started having nausea, vomiting abdominal pain and diarrhea which got worse in last few days. Patient went back to her primary care doctor where lab work was done which showed very elevated WBC count. Patient was instructed to go to the ER. In the ER CT scan of the abdomen was done which showed generalized colitis and possibly inflamed appendix. Surgeon on-call initially had recommended transfer to higher level of care given possible appendicitis and colitis, the surgeons at [facility] did not recommend transfer at this point, they recommended treating patient for colitis as patient had no classic signs of appendicitis and closely watching for any worsening signs of appendicitis. Patient was admitted to the hospital for further management with surgery on consult. Patient was started on IV antibiotics, and IV fluids, IV PPI, IV Zofran. Stools studies were sent , C diff came back positive, per surgery there was no concern of appendicitis clinically, patient presents started on oral vancomycin for C. difficile. Patient's diarrhea slowly started to improve the frequency got better as well. IV Zosyn was stopped. Patient was able to tolerate diet and it was advanced slowly. Patient was requesting discharge but she started feeling better. Patient was eventually discharged on oral vancomycin and was recommended to follow-up with her primary care doctor. Diagnosis: Stroke: No - Discharge Data Discharge Date: 05/12/21 Discharge Disposition: Home, Self-Care 01 Condition: Stable - Referral to Home Health Primary Care Physician: Margie Munoz, DO - Discharge Diagnosis/Problem(s) (1) H/O gastric bypass SNOMED Code(s): 524224553 ICD Code: Z98.84 - BARIATRIC SURGERY STATUS Status: Acute Priority: Low (2) Hx of cholecystectomy SNOMED Code(s): 040914485, 394589097 ICD Code: Z90.49 - ACQUIRED ABSENCE OF OTHER SPECIFIED PARTS OF DIGESTIVE TRACT Status: Acute Priority: Low (3) Colitis SNOMED Code(s): 92886519 ICD Code: K52.9 - NONINFECTIVE GASTROENTERITIS AND COLITIS, UNSPECIFIED Status: Acute Priority: High (4) Hypokalemia SNOMED Code(s): 73761774 ICD Code: E87.6 - HYPOKALEMIA Status: Acute - Patient Summary/Data Consults: Consultations 05/10/21 19:20 Consult to Physician [CONS] Stat - Patient Instructions Diet: Usual Diet as Tolerated Activity: As Tolerated Driving: May Drive Today Showering/Bathing: May Shower Notify Provider of: Fever, Increased Pain, Swelling and Redness, Drainage, Nausea and/or Vomiting - Discharge Plan *PRESCRIPTION DRUG MONITORING PROGRAM REVIEWED*: No *COPY OF PRESCRIPTION DRUG MONITORING REPORT IN PATIENT JONNATHAN: No Prescriptions/Med Rec: Lactobacillus Acidophilus [Acidophilus] 1 cap PO DAILY #20 capsule Vancomycin [Vancocin 125 MG Capsule] 125 mg PO QID 8 Days #32 cap Home Medications: Home Meds Fluconazole [Diflucan] 150 mg PO Q72H PRN 05/11/21 [History] Lactobacillus Acidophilus [Acidophilus] 1 cap PO DAILY #20 capsule 05/12/21 [Rx] Vancomycin [Vancocin 125 MG Capsule] 125 mg PO QID 8 Days #32 cap 05/12/21 [Rx] Patient Handouts: Lactobacillus Oral formulations, Clostridioides Difficile Infection, [id number], Colitis, Vancomycin capsules Forms: ED Department Discharge Referrals: Margie Munoz DO [Primary Care Provider] - 05/24/21 2:15 pm - Discharge Summary/Plan Comment DC Time >30 min.: Yes - Patient Data Vitals - Most Recent: Last Vital Signs Temp 36.2 C 05/12/21 12:00 Pulse 62 05/12/21 12:00 Resp 18 05/12/21 12:00 BP 145/54 H 05/12/21 12:00 Pulse Ox 97 05/12/21 12:00 Weight - Most Recent: 93.077 kg I&O - Last 24 hours: Intake & Output 05/11/21 05/12/21 05/12/21 22:59 06:59 14:59 Intake Total 2588 500 830 Output Total 700 1200 Balance 1888 -700 830 Lab Results - Last 24 hrs: Laboratory Results - last 24 hr 05/12/21 05/12/21 Range/Units 05:00 05:00 WBC 9.10 (4.0-11.0) K/uL RBC 3.71 L (4.30-5.90) M/uL Hgb 10.7 L (12.0-16.0) g/dL Hct 32.6 L (36.0-46.0) % MCV 87.9 (80.0-98.0) fL MCH 28.8 (27.0-32.0) pg MCHC 32.8 (31.0-37.0) g/dL RDW Std Deviation 45.5 (28.0-62.0) fl RDW Coeff of Pankaj 14 (11.0-15.0) % Plt Count 276 (150-400) K/uL MPV 9.70 (7.40-12.00) fL Neut % (Auto) 69.4 (48.0-80.0) % Lymph % (Auto) 21.3 (16.0-40.0) % [place] % (Auto) 7.0 (0.0-15.0) % Eos % (Auto) 2.1 (0.0-7.0) % Baso % (Auto) 0.2 (0.0-1.5) % Neut # (Auto) 6.3 H (1.4-5.7) K/uL Lymph # (Auto) 1.9 (0.6-2.4) K/uL [place] # (Auto) 0.6 (0.0-0.8) K/uL Eos # (Auto) 0.2 (0.0-0.7) K/uL Baso # (Auto) 0.0 (0.0-0.1) K/uL Nucleated RBC % 0.0 /100WBC Nucleated RBCs # 0 K/uL Sodium 142 (136-145) mmol/L Potassium 3.1 L (3.5-5.1) mmol/L Chloride 110 H (98-107) mmol/L Carbon Dioxide 24.6 (21.0-32.0) mmol/L BUN 2 L (7.0-18.0) mg/dL Creatinine 0.6 (0.6-1.0) mg/dL Est Cr Clr Drug Dosing 116.35 mL/min Estimated GFR (MDRD) > 60.0 ml/min Glucose 95 (74-106) mg/dL Calcium 7.7 L (8.5-10.1) mg/dL Phosphorus 2.5 L (2.6-4.7) mg/dL Magnesium 1.9 (1.8-2.4) mg/dL YANETH Results - Last 24 hrs: Microbiology 05/11/21 06:00 Clostridioides difficile (PCR) - Final Stool / Feces 05/11/21 06:00 Cryptosporidium/Giardia - Final Stool / Feces 05/11/21 06:00 Shiga Toxin I & II - Final Stool / Feces 05/10/21 21:29 Aerobic Blood Culture - Preliminary Blood - Venous - Lab Draw NO GROWTH AFTER 1 DAY Anaerobic Blood Culture - Preliminary NO GROWTH AFTER 1 DAY 05/10/21 21:23 Aerobic Blood Culture - Preliminary Blood - Venous NO GROWTH AFTER 1 DAY Anaerobic Blood Culture - Preliminary NO GROWTH AFTER 1 DAY Med Orders - Current: Current Medications Acetaminophen (Acetaminophen 325 Mg Tab) 650 mg PO Q4H PRN PRN Reason: Pain Last Admin: 05/11/21 01:27 Dose: 650 mg Documented by: Acidophilus/Pectin (Acidophilus With Sac Pectin Tab) 1 tab PO DAILY [facility] Last Admin: 05/12/21 09:25 Dose: 1 tab Documented by: Albuterol/Ipratropium (Albuterol/Ipratropium 3.0-0.5 Mg/3 Ml Neb Soln) 3 ml NEB Q4HRRT PRN PRN Reason: Shortness Of Breath/wheezing Enoxaparin Sodium (Enoxaparin 40 Mg/0.4 Ml Syringe) 40 mg SUBCUT Q24H [facility] Last Admin: 05/11/21 22:14 Dose: 40 mg Documented by: Lactated Ringer's (Ringers, Lactated) 1,000 mls @ 125 mls/hr IV ASDIRECTED [facility] Last Admin: 05/12/21 02:32 Dose: 125 mls/hr Documented by: Pantoprazole Sodium 40 mg/ (Sodium Chloride) 10 mls @ 300 mls/hr IV DAILY [facility] Last Admin: 05/12/21 09:13 Dose: 300 mls/hr Documented by: Morphine Sulfate (Morphine 2 Mg/Ml Syringe) 1 mg IVPUSH Q3H PRN PRN Reason: Pain (severe 7-10) Ondansetron HCl (Ondansetron 4 Mg/2 Ml Sdv) 4 mg IVPUSH Q4H PRN PRN Reason: Nausea/Vomiting Sodium Phosphate (Phosphorus #1 250 Mg Tab) 250 mg PO QID [facility] Last Admin: 05/12/21 11:57 Dose: 250 mg Documented by: Vancomycin HCl (Vancomycin 125 Mg Cap) 125 mg PO QID [facility] Last Admin: 05/12/21 11:56 Dose: 125 mg Documented by: Discontinued Medications Enoxaparin Sodium (Enoxaparin 40 Mg/0.4 Ml Syringe) 40 mg SUBCUT NOW ONE Stop: 05/10/21 23:16 Sodium Chloride (Normal Saline) 1,000 mls @ 999 mls/hr IV BOLUS ONE Stop: 05/10/21 16:53 Last Admin: 05/10/21 16:51 Dose: 999 mls/hr Documented by: Piperacillin Sod/Tazobactam (Sod 3.375 gm/ Sodium Chloride) 50 mls @ 100 mls/hr IV ONETIME ONE Stop: 05/10/21 19:16 Last Admin: 05/10/21 19:54 Dose: 100 mls/hr Documented by: Metronidazole 500 mg/ Premix 100 mls @ 100 mls/hr IV ONETIME ONE Stop: 05/10/21 19:50 Last Admin: 05/10/21 19:56 Dose: 100 mls/hr Documented by: Sodium Chloride (Normal Saline) 1,000 mls @ 800 mls/hr IV STAT ONE Stop: 05/10/21 20:33 Last Admin: 05/10/21 19:50 Dose: 800 mls/hr Documented by: Metronidazole (Flagyl In Ns 500 Mg/100 Ml) Confirm Administered Dose 100 mls @ as directed .ROUTE .STK-MED ONE Stop: 05/10/21 19:40 Last Admin: 05/10/21 19:56 Dose: Not Given Documented by: Potassium Chloride 40 meq/ (Premix) 100 mls @ 25 mls/hr IV ONETIME ONE Stop: 05/11/21 03:13 Last Admin: 05/11/21 00:36 Dose: 25 mls/hr Documented by: Piperacillin Sod/Tazobactam (Sod 3.375 gm/ Sodium Chloride) 50 mls @ 100 mls/hr IV Q8H [facility] Last Admin: 05/11/21 03:30 Dose: 100 mls/hr Documented by: Piperacillin Sod/Tazobactam (Sod 3.375 gm/ Sodium Chloride) 50 mls @ 100 mls/hr IV Q6H [facility] Last Admin: 05/11/21 09:20 Dose: 100 mls/hr Documented by: Potassium Chloride/Sodium Chloride (Normal Saline With 40 Meq Kcl) 1,000 mls @ 125 mls/hr IV ASDIRECTED ONE Stop: 05/11/21 18:44 Last Admin: 05/11/21 11:01 Dose: 125 mls/hr Documented by: Magnesium Sulfate 2 gm/ Premix 50 mls @ 25 mls/hr IV ONETIME ONE Stop: 05/11/21 12:34 Last Admin: 05/11/21 11:00 Dose: 25 mls/hr Documented by: Potassium Chloride/Sodium Chloride (Normal Saline With 40 Meq Kcl) 1,000 mls @ 250 mls/hr IV ONETIME ONE Stop: 05/12/21 11:52 Last Admin: 05/12/21 10:50 Dose: 250 mls/hr Documented by: Lactated Ringer's (Ringers, Lactated) 1,000 mls @ 999 mls/hr IV .BOLUS ONE Stop: 05/12/21 11:31 Last Admin: 05/12/21 12:29 Dose: 999 mls/hr Documented by: Iopamidol (Iopamidol 755 Mg/Ml 500 Ml Multipack Bottle) 100 ml IVPUSH ONETIME STA Stop: 05/10/21 17:36 Last Admin: 05/10/21 17:36 Dose: 100 ml Documented by: Ketorolac Tromethamine (Ketorolac 30 Mg/Ml Sdv) 30 mg IVPUSH ONETIME ONE Stop: 05/10/21 15:54 Last Admin: 05/10/21 16:52 Dose: 30 mg Documented by: Ondansetron HCl (Ondansetron 4 Mg/2 Ml Sdv) 4 mg IVPUSH ONETIME ONE Stop: 05/10/21 15:54 Last Admin: 05/10/21 16:52 Dose: 4 mg Documented by: Potassium Chloride (Potassium Chloride 20 Meq Tab.Er) 40 meq PO ONETIME ONE Stop: 05/11/21 10:34 Last Admin: 05/11/21 11:29 Dose: 40 meq Documented by: Potassium Chloride (Potassium Chloride 20 Meq Tab.Er) 40 meq PO ONETIME ONE Stop: 05/12/21 07:54 Last Admin: 05/12/21 09:24 Dose: 40 meq Documented by: Potassium Chloride (Potassium Chloride 20 Meq Tab.Er) 40 meq PO ONETIME ONE Stop: 05/12/21 10:39 Last Admin: 05/12/21 11:55 Dose: 40 meq Documented by:
== END 2021-05-12 13:50 | disposition home or self-care (01) | DRG 372 ==
LOC: MW.ED 14:11 → MW.MS 19:20
PROVIDERS: ADMIT Student in an Organized Health Care Education/Training Program; ATTEND Student in an Organized Health Care Education/Training Program
DX: A04.72 Enterocolitis due to Clostridium difficile, not specified as recurrent (principal); K52.1 Toxic gastroenteritis and colitis; E87.6 Hypokalemia; T36.0X5A Adverse effect of penicillins, initial encounter; T36.1X5A Adverse effect of cephalosporins and other beta-lactam antibiotics, initial encounter; Z20.822 Contact with and (suspected) exposure to COVID-19; Z98.84 Bariatric surgery status; Z90.49 Acquired absence of other specified parts of digestive tract; Z90.710 Acquired absence of both cervix and uterus
CPT/HCPCS: 0240U; 36415; 71045; 71045-26; 74177; 74177-26; 80048; 80053; 81001; 83605; 83690; 83735; 84100; 85025; 87040; 87045; 87046; 87324; 87328; 87329; 87449; 87493; 87651-QW; 87899; 96374; 96375; 99221; 99232; 99239; 99284; 99285-25; A9270-GY; C9113; J1650; J1885; J2405; J2543; J3475; J3480; J3490; J7030; J7120; Q9967